=== PATIENT | female | born 1940 | race Caucasian/White ===

== ENCOUNTER 2016-08-26 15:32 | Emergency (ER) | payer MEDICARE, BC ==
[~2016-08-26] VITALS: Ht 152.4 cm; Wt 50.4 kg
[~2016-08-26 15:32] MED LIST: CALC1CAP22 PO; HYDR-4246 PO; MULT-1243 PO; POLY17PO6 PO
[2016-08-26 15:40] VITALS: Ht 152.4 cm; Wt 50.4 kg
--- OUTSIDE RECORDS SUMMARY | 2016-08-26 15:45 | XMS REPORT | Referral Summary ---
Author Author [facility] Organization [facility] Address Unknown Phone Unavailable Care Team Providers Care Pool Technician Name Role Phone Margarita Jaramillo Primary Care Physician [phone] Encounter [facility] Date(s): 08/04/15 - 08/04/15 [facility], [address] [place] [address] Discharge Disposition: 01-Home or Self Care Attending Physician: Gray Jaramillo MD Admitting Physician: Gray Jaramillo MD Vital Signs Most recent to 1 oldest [Reference Range]: Temperature Tympanic 36.6 degC [36.6-38.1 degC] (08/04/15 3:39 PM) Peripheral Pulse 80 bpm Rate [60-100 bpm] (08/04/15 3:39 PM) Blood Pressure 110/62 mmHg [90-140/60-90 mmHg] (08/04/15 3:39 PM) Problem List Condition Effective Dates Status Health Status Informant Abnormal loss of Active weight(Confirmed) Acute Active bronchitis(Confirmed ) Acute Active sinusitis(Confirmed) Acute thoracic back Active pain(Confirmed) Allergy(Confirmed) Active Axillary Active lymphadenopathy(Conf irmed) Axillary Active adenopathy(Confirmed ) Carpal tunnel Active syndrome, right(Confirmed) Carpal tunnel Active syndrome (disorder)(Confirmed ) Cataracts(Confirmed) Resolved Cervical Resolved polyp(Confirmed) Cervical Active radiculopathy(Confir med) CLL (chronic Active lymphocytic leukemia)(Confirmed) CLL(Confirmed) Active Disease/nodule Active maxillary bone(Confirmed) Skin Active disorder(Confirmed) Stress Active incontinence(Confirm ed) Shingles(Confirmed) Active Hyperlipidemia(Confi Active rmed) Urinary Active frequency(Confirmed) Diaphragm Active injury/ruptured/hors e(Confirmed) Knee Active pain/right(Confirmed ) Mass of lower lobe Active of right lung(Confirmed) Lymphadenopathy(Conf Active irmed) Lymphoma(Confirmed) Active Mass of Active leg(Confirmed) [place] Resolved neuroma(Confirmed) Neck pain Active (finding)(Confirmed) Neutropenia(Confirme Active d) Osteoarthritis(Confi Active rmed) Osteopenia(Confirmed Active ) Calf pain(Confirmed) Active Mass of Active pharynx(Confirmed) Post zoster Active neuralgia(Confirmed) Sinus Active infection(Confirmed) Spinal stenosis in Active cervical region (disorder)(Confirmed ) Ecchymoses, Active spontaneous(Confirme d) Popliteal Active cyst(Confirmed) Dry eyes(Confirmed) Active Thrombocytopenia(Con Resolved firmed) Left thyroid Active nodule(Confirmed) Uterine Active prolapse(Confirmed) Chicken Active pox(Confirmed) Varicose veins of Active legs(Confirmed) Allergies, Adverse Reactions, Alerts Substance Reaction Severity Status cortisone swelling Active lidocaine skin burning Active meloxicam abdominal pain Active Medications Calcium 600+D tabs, Oral, BID, 0 Refill(s) Start Date: 11/10/13 Status: Ordered Centrum Silver Daily, 0 Refill(s) Start Date: 11/10/13 Status: Ordered metroNIDAZOLE 500 mg oral tablet 500 mg 1 tabs, Oral, q6hr, 0 Refill(s) Start Date: 08/02/15 Stop Date: 08/09/15 Status: Ordered Union 5 mg-325 mg oral tablet 1-2 tabs, Oral, q6hr, as needed for pain, 0 Refill(s) Start Date: 04/04/15 Status: Ordered Probiotic Formula 1 caps, Oral, Daily, 0 Refill(s) Start Date: 08/04/15 Status: Ordered Results Chemistry Most recent to 1 oldest [Reference Range]: Sodium Lvl [135-144 138 mEq/L mEq/L] (08/04/15 4:08 PM) Potassium Lvl 4.5 mEq/L [3.5-5.2 mEq/L] (08/04/15 4:08 PM) Chloride [99-111 104 mEq/L mEq/L] (08/04/15 4:08 PM) CO2 [22-31 mEq/L] 28 mEq/L (08/04/15 4:08 PM) AGAP [3-20] 6 (08/04/15 4:08 PM) BUN [10-20 mg/dL] 8 mg/dL *LOW* (08/04/15 4:08 PM) Glucose Lvl [70-99 95 mg/dL mg/dL] (08/04/15 4:08 PM) Creatinine Lvl 0.81 mg/dL [0.57-1.11 mg/dL] (08/04/15 4:08 PM) eGFR [>60 mL/min] >60 mL/min 1 (08/04/15 4:08 PM) Calcium Lvl 9.4 mg/dL [8.9-10.5 mg/dL] (08/04/15 4:08 PM) Albumin Lvl [3.4-4.8 3.9 gm/dL gm/dL] (08/04/15 4:08 PM) Total Protein 5.4 gm/dL [6.2-8.1 gm/dL] *LOW* (08/04/15 4:08 PM) Globulin [1.8-4.0 1.5 gm/dL gm/dL] *LOW* (08/04/15 4:08 PM) ALT [0-55 U/L] 18 U/L (08/04/15 4:08 PM) AST [5-34 U/L] 25 U/L (08/04/15 4:08 PM) Alk Phos [40-150 72 U/L U/L] (08/04/15 4:08 PM) Bili Total [0.2-1.2 0.3 mg/dL mg/dL] (08/04/15 4:08 PM) 1Result Comment: Multiply eGFR results by 1.21 for race. Immunizations Vaccine Date Refusal Reason tetanus/diphth/pertuss (Tdap) adult/adol 09/24/13 influenza virus vaccine, inactivated 03/10/15 influenza virus vaccine, inactivated1 02/18/14 influenza virus vaccine, live 02/17/13 influenza virus vaccine, live 03/06/12 pneumococcal 13-valent conjugate vaccine 07/01/14 pneumococcal 23-polyvalent vaccine 02/22/10 pneumococcal 23-polyvalent vaccine 01/25/04 tetanus-diphth toxoids (Td) adult/adol 01/13/04 tetanus-diphth toxoids (Td) adult/adol 10/25/98 1Result Comment: [02/18/2014] See scanned document Procedures Procedure Date Related Diagnosis Body Site Laparotomy1 07/17/15 Right C5-6/C6-7 Transforaminal 09/27/14 Right Carpal Tunnel Injection Under US 04/25/14 Right C5-6/C6-7 Transforaminal 04/07/14 Procedure/Right C5-6/C6-7 Transforaminal 06/03/13 Procedure/Right C5-6/C6-7 Transforaminal 06/11/12 Hospital admission/chemotherapy 2010 Removal/lymph node 2011 Sigmoidoscopy 2008 Arthroscopy of knee/left 2001 Fulton's neuroma/excision x 3 2000 Arthroscopy of knee/left 1997 Appendectomy 1988 Repair/diaphragm 1988 Cataract2 Cervical polypectomy 1with lysis of adhesions 2bilateral IOLs Social History Social History Type Response Smoking Status Never smoker Assessment and Plan Extracted from: Title: Ambulatory Patient Education Author: Gray Jaramillo MD Date: 08/03 Family Medicine Urinary Incontinence Urinary incontinence is the involuntary loss of urine from your bladder. CAUSES There are many causes of urinary incontinence. They include: Medicines. Infections. Prostatic enlargement, leading to overflow of urine from your bladder. Surgery. Neurological diseases. Emotional factors. SIGNS AND SYMPTOMS Urinary Incontinence can be divided into four types: 1.Urge incontinence. Urge incontinence is the involuntary loss of urine before you have the opportunity to go to the bathroom. There is a sudden urge to void but not enough time to reach a bathroom. 2.Stress incontinence. Stress incontinence is the sudden loss of urine with any activity that forces urine to pass. It is commonly caused by anatomical changes to the pelvis and sphincter areas of your body. 3.Overflow incontinence. Overflow incontinence is the loss of urine from an obstructed opening to your bladder. This results in a backup of urine and a resultant buildup of pressure within the bladder. When the pressure within the bladder exceeds the closing pressure of the sphincter, the urine overflows, which causes incontinence, similar to water overflowing a dam. 4.Total incontinence. Total incontinence is the loss of urine as a result of the inability to store urine within your bladder. DIAGNOSIS Evaluating the cause of incontinence may require: A thorough and complete medical and obstetric history. A complete physical exam. Laboratory tests such as a urine culture and sensitivities. When additional tests are indicated, they can include: An ultrasound exam. Kidney and bladder X-rays. Cystoscopy. This is an exam of the bladder using a narrow scope. Urodynamic testing to test the nerve function to the bladder and sphincter areas. TREATMENT Treatment for urinary incontinence depends on the cause: For urge incontinence caused by a bacterial infection, antibiotics will be prescribed. If the urge incontinence is related to medicines you take, your health care provider may have you change the medicine. For stress incontinence, surgery to re-establish anatomical support to the bladder or sphincter, or both, will often correct the condition. For overflow incontinence caused by an enlarged prostate, an operation to open the channel through the enlarged prostate will allow the flow of urine out of the bladder. In women with fibroids, a hysterectomy may be recommended. For total incontinence, surgery on your urinary sphincter may help. An artificial urinary sphincter (an inflatable cuff placed around the urethra) may be required. In women who have developed a hole-like passage between their bladder and vagina (vesicovaginal fistula), surgery to close the fistula often is required. HOME CARE INSTRUCTIONS Normal daily hygiene and the use of pads or adult diapers that are changed regularly will help prevent odors and skin damage. Avoid caffeine. It can overstimulate your bladder. Use the bathroom regularly. Try about every 23 hours to go to the bathroom, even if you do not feel the need to do so. Take time to empty your bladder completely. After urinating, wait a minute. Then try to urinate again. For causes involving nerve dysfunction, keep a log of the medicines you take and a journal of the times you go to the bathroom. SEEK MEDICAL CARE IF: You experience worsening of pain instead of improvement in pain after your procedure. Your incontinence becomes worse instead of better. SEE IMMEDIATE MEDICAL CARE IF: You experience fever or shaking chills. You are unable to pass your urine. You have redness spreading into your groin or down into your thighs. MAKE SURE YOU: (Understand these instructions. Will watch your condition. Will get help right away if you are not doing well or get worse. This information is not intended to replace advice given to you by your health care provider. Make sure you discuss any questions you have with your health care provider. Document Released: 06/12/2005 Document Revised: 02/21/2015 Document Reviewed: [employer] Patient Information 2015 [employer] [facility]. No follow up information was provided. Extracted from: Title: SBO, CLL, hyponatremia Author: Gray Jaramillo MD Date: 08/04/15 Impression and Plan Diagnosis CLL (chronic lymphocytic leukemia) (PEU21-VH C91.10, Working, Medical). Hyponatremia (FFL07-GT E87.1, Working, Medical). Female stress incontinence (RSC40-FZ N39.3, Working, Medical). Osteopenia (PZV65-FZ M85.89, Working, Medical). Hx SBO (DZW45-NH Z87.19, Working, Medical). Plan: 1) Lab today. 2) Continue your current meds. 3) See me in one month and as needed. 4) Drink 2-3 ensure cans daily. 5) Walking exercise is helpful.. Orders Orders (Selected) Outpatient Orders Ordered Trans Care Mgmt 14 Day Disch [id number]: Future (On Hold) CMP: . Dx/Order Association Plan: Diagnosis: CLL (chronic lymphocytic leukemia) Comment: Ordered: Trans Care Mgmt 14 Day Disch [id number]; 08/04/15 15:55:00 CDT , 1, Hx SBO | CLL (chronic lymphocytic leukemia) | Hyponatremia | Osteopenia Diagnosis: Female stress incontinence Comment: Diagnosis: Hx SBO Comment: Ordered: Trans Care Mgmt 14 Day Disch [id number]; 08/04/15 15:55:00 CDT , 1, Hx SBO | CLL (chronic lymphocytic leukemia) | Hyponatremia | Osteopenia Diagnosis: Hyponatremia Comment: Ordered: Trans Care Mgmt 14 Day Disch [id number]; 08/04/15 15:55:00 CDT , 1, Hx SBO | CLL (chronic lymphocytic leukemia) | Hyponatremia | Osteopenia Diagnosis: Osteopenia Comment: Ordered: Trans Care Mgmt 14 Day Disch [id number]; 08/04/15 15:55:00 CDT , 1, Hx SBO | CLL (chronic lymphocytic leukemia) | Hyponatremia | Osteopenia Diagnosis: Hyponatremia Comment: Diagnosis: Hx SBO Comment: Diagnosis: Osteopenia Comment: Diagnosis: CLL (chronic lymphocytic leukemia) Comment: End of Orders ."
--- OUTSIDE RECORDS SUMMARY | 2016-08-26 15:45 | XMS REPORT | Referral Summary ---
Author Author [facility] Organization [facility] Address Unknown Phone Unavailable Care Team Providers Care Immigration Associate Name Role Phone Margarita Jaramillo Primary Care Physician [phone] Encounter [facility] [id number] Date(s): 09/23/14 - 09/23/14 [facility] [address] [place], [place] [address] Discharge Diagnosis: Spinal stenosis in cervical region (disorder) Discharge Diagnosis: Cervical radiculopathy Discharge Diagnosis: Carpal tunnel syndrome (disorder) Discharge Diagnosis: Neck pain (finding) Discharge Disposition: -Home or Self Care Attending Physician: Jhoana Payne APRN Admitting Physician: Jhoana Payne APRN Referring Physician: Gray Jaramillo MD Vital Signs Most recent to 1 oldest [Reference Range]: Temperature Oral 36.4 degC [35.8-37.3 degC] (09/23/14 10:32 AM) Blood Pressure 114/68 mmHg [90-140/60-90 mmHg] (09/23/14 10:32 AM) Problem List Condition Effective Dates Status Health [...] 0 Refill(s) Start Date: 11/10/13 Status: Ordered Serena 5 mg-325 mg oral tablet 1-2 tabs, Oral, q6hr, as needed for pain, 0 Refill(s) Start Date: 04/04/15 Status: Ordered traMADol 50 mg oral tablet 50 mg 1 tabs, Oral, q6hr, Fax: Juliana [place], # 20 tabs, 0 Refill(s) Start Date: 04/04/15 Status: Ordered Results No data available for this section Immunizations Vaccine Date Refusal Reason tetanus/diphth/pertuss (Tdap) [...] Procedures Procedure Date Related Diagnosis Body Site Right C5-6/C6-7 Transforaminal 09/27/14 Right Carpal Tunnel Injection Under US 04/25/14 Right C5-6/C6-7 Transforaminal 04/07/14 Procedure/Right C5-6/C6-7 Transforaminal 06/03/13 Procedure/Right C5-6/C6-7 Transforaminal 06/11/12 Hospital admission/chemotherapy 2010 Removal/lymph node 2011 Sigmoidoscopy 2008 Arthroscopy of knee/left 2001 Fulton's neuroma/excision x 3 2000 Arthroscopy of knee/left 1997 Appendectomy 1988 Repair/diaphragm 1987 Cataract1 Cervical polypectomy 1bilateral IOLs Social History Social History Type Response Smoking Status Never smoker Assessment and Plan Extracted from: Title: Office Visit Note Author: Jhoana Payne [employer] 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 Snider. Her cervical MRI shows multiple levels of disc bulges spondylitic changes and spinal listhesis resulting in central and foraminal stenosis. She returns today with pain in her right arm radiating in a C5 6 distribution she also has carpal tunnel in her right hand with burning numbness and tingling which wakes her up approximately every hour at night. Dr. Snider recommends proceeding with a repeat of a right C5 6 C6 7 transforaminal epidural steroid injection 2 weeks later repeating a right carpal tunnel injection for her symptoms. Discussed with her that after her transforaminal epidural steroid injection if her carpal tunnel symptoms improve she may cancel the carpal tunnel injection Discussed the potential side effects and possible risks from the injection: localized increase in pain, infection, bleeding, allergic reaction, nerve damage involving temporary or permanent pain, numbness , weakness, paralysis or . Patient is in agreement to the above plan of care she will follow-up in our clinic 3 months after the injections or sooner if her symptoms do not improve. Future Scheduled TestsReferral* Return to Clinic 06/07/14 5:31 PM Referrals to Other Providers Referred by: José Almanzar MD
--- OUTSIDE RECORDS SUMMARY | 2016-08-26 15:45 | XMS REPORT | Continuity of Care Document ---
Author Author [facility] Organization [facility] Address Unknown Phone Unavailable Support Name Relationship Address Phone TATE WIGGINS MD Caregiver [address] [place] [address] Unavailable BRINA SCHOFIELD MD Caregiver [address] [place] [id number] Unavailable ZURI BEDOLLA Next Of Kin [place], [place] [id number] Insurance Providers Guarantor Lissy Bedolla Address [address] [address] Email DENIED/NO TO PT PORT Payer Join [employer] Select Plan 65 Policy Number [id number] Subscriber's Name Lissy Bedolla Relationship 18 Self Group Number [id number] Effective Date 09 Payer Medicare Policy Number [id number] Subscriber's Name Lissy Bedolla Relationship 18 Self Effective Date 03 Problems Active Problems Medical Problem Onset Date Status Abdominal pain Unknown Acute Anemia Unknown Chronic CLL (chronic lymphocytic leukemia) Unknown Chronic Cataract Unknown Acute Closed rib fracture Unknown Acute Dyslipidemia Unknown Chronic Enteritis Unknown Acute History of pneumonia Unknown Resolved Hypo-osmolality and hyponatremia Unknown Acute Hypocalcemia Unknown Acute Hyponatremia Unknown Acute Leukocytosis Unknown Chronic Osteoarthritis Unknown Chronic Osteoporosis Unknown Chronic Partial bowel obstruction Unknown Resolved Urge and stress incontinence Unknown Chronic Volvulus of colon Unknown Acute Medications Current Home Medications Medication Dose Units Route Directions Days Qty Instructions Start Date Calcium Carbonate/Vitamin D3 (Calcium 600 + Vit D 400 Softgl) 1 Each Capsule 1 Cap Oral Twice A Day 07/16/15 Hydrocodone/Acetaminophen (Stokes 5-325 Tablet) 1 Each Tablet 1-2 Tab Oral Every 4-6 Hours as needed for Pain 30 Tablet 07/16/15 Hydrocodone/Acetaminophen (Stokes 5-325 Tablet) 1 Each Tablet 1-2 Tab Oral Every 5 Hours as needed for Pain 20 Tablet 07/23/15 Multivits-Min/Fa/Lycopene/Lut (Centrum Silver Tablet) 1 Each Tablet 1 Tab Oral Daily 07/17/15 Polyethylene Glycol 3350 (Miralax) 17 Gm Powd.pack 1 Packet Oral Daily for Constipation 14 Days 07/23/15 Past Home Medications Medication Directions Ordered Status Alendronate Sodium (Fosamax) 70 Mg Tablet, 70 Mg Oral Once A Week 06/18/10 Discontinued Ciprofloxacin Hcl (Cipro) 500 Mg Tablet, 500 Mg Oral Every 12 Hours 07/16/15 Discontinued Metronidazole 500 Mg Tablet, 500 Mg Oral Q6h/0300,0900,1500,2100 07/16/15 Discontinued Rosuvastatin Calcium (Crestor) 5 Mg Tablet, 5 Mg Oral 11/21/10 Discontinued Rosuvastatin Calcium (Crestor) 5 Mg Tablet, 5 Mg Oral Daily 11/21/10 Discontinued Social History Social History Problem Response Recorded Date/Time Onset Date Status Hx Substance Use No 07/17/2015 5:50pm Not Applicable Not Applicable Hx Alcohol Use No 07/18/2015 2:13pm Not Applicable Not Applicable Tobacco Usage none 07/18/2015 9:08am Not Applicable Not Applicable Hospital Discharge Instructions No hospital discharge instructions. Plan of Care Prescriptions See Medication Section Functional Status No functional status results. Allergies, Adverse Reactions, Alerts No known allergies. Immunizations Query Response on File Recorded Date/Time Hx Influenza Vaccination Y fall 201407/17/15 8:24pm Hx Pneumococcal Vaccination 201307/17/15 8:24pm Hx Tetanus, Diptheria, Pertussis Yes 02/25/11 3:05pm Hx Influenza Vaccination Y fall 201407/17/15 8:24pm Hx Tetanus, Diptheria, Pertussis Yes 02/25/11 3:05pm Influenza Vaccine Hx February 2015 07/19/15 10:15am Vital Signs No known vital signs results. Results Laboratory Results Test Name Result Units Flags Reference Collection Date/Time Result Date/ Time Comments Metamyelocytes % 2.0 % H 0-0 01/25/2016 8:35am 01/25/2016 9:20am Metamyelocytes # 1.1 T/MM3 01/25/2016 8:35am 01/25/2016 9:20am Reactive Lymphocytes % 2.0 % H 0-0 03/21/2016 9:10am 03/21/2016 10:13am Reactive Lymphocytes # 0.8 T/MM3 H 0-0 03/21/2016 9:10am 03/21/2016 10: 13am Smudge Cells 2+ 03/21/2016 9:10am 03/21/2016 10:13am White Blood Count 28.1 T/MM3 *H 4.5-11.0 05/16/2016 8:57am 05/16/2016 9: 16am Red Blood Count 4.56 M/MM3 4.00-5.20 05/16/2016 8:57am 05/16/2016 9: 14am Hemoglobin 14.2 GM/DL 12-16 05/16/2016 8:57am 05/16/2016 9:14am Hematocrit 42.9 % 36-46 05/16/2016 8:57am 05/16/2016 9:14am Mean Corpuscular Volume 94.1 UM3 80-100 05/16/2016 8:57am 05/16/2016 9: 14am Mean Corpuscular Hemoglobin 31.1 UUG 26-34 05/16/2016 8:57am 2015 9:14am Mean Corpuscular Hemoglobin Concent 33.1 GM/DL 31-37 05/16/2016 8:57am 05/16/2016 9:14am RDW Standard Deviation 47.5 FL 36.9-50.2 05/16/2016 8:57am 05/16/2016 9 :14am Platelet Count 157 T/MM3 130-400 05/16/2016 8:57am 05/16/2016 9:14am Mean Platelet Volume 11.2 UM3 9.4-12.4 05/16/2016 8:57am 05/16/2016 9: 14am Neutrophils (%) (Auto) 26.8 % L 33-66 04/18/2016 9:34am 04/18/2016 9: 41am Lymphocytes (%) (Auto) 66.4 % H 23-45 04/18/2016 9:34am 04/18/2016 9: 41am Monocytes (%) (Auto) 5.9 % 0-9.0 04/18/2016 9:34am 04/18/2016 9:41am Eosinophils (%) (Auto) 0.5 % 0-4 04/18/2016 9:34am 04/18/2016 9:41am Basophils (%) (Auto) 0.2 % 0-2 04/18/2016 9:34am 04/18/2016 9:41am Immature Granulocyte % (Auto) 0.2 % 0.0-0.5 04/18/2016 9:34am 2015 9:41am Absolute Neutrophils (auto) 2.8 T/MM3 1.8-7.7 04/18/2016 9:34am 2015 9:41am Absolute Lymphocytes (auto) 6.9 T/MM3 H 1-4.8 04/18/2016 9:34am 2015 9:41am Absolute Monocytes (auto) 0.6 T/MM3 0-0.8 04/18/2016 9:34am 04/18/2016 9:41am Absolute Eosinophils (auto) 0.1 T/MM3 0-0.5 04/18/2016 9:34am 2015 9:41am Absolute Basophils (auto) 0.0 T/MM3 0-0.2 04/18/2016 9:34am 04/18/2016 9:41am Absolute Immature Granulocyte (auto 0.02 T/MM3 0.00-0.03 04/18/2016 9: 34am 04/18/2016 9:41am Neutrophils % (Manual) 10.0 % L 33-66 05/16/2016 8:57am 05/16/2016 9: 28am Lymphocytes % (Manual) 86.0 % H 23-45 05/16/2016 8:57am 05/16/2016 9: 28am Monocytes % (Manual) 3.0 % 0-9.0 05/16/2016 8:57am 05/16/2016 9:28am Eosinophils % (Manual) 1.0 % 0-4 05/16/2016 8:57am 05/16/2016 9:28am Absolute Neutrophils (Manual) 2.8 T/MM3 1.8-7.7 05/16/2016 8:57am 05/16 9:28am Lymphocytes # (Manual) 24.2 T/MM3 H 1-4.8 05/16/2016 8:57am 05/16/2016 9 :28am Monocytes # (Manual) 0.8 T/MM3 0-0.8 05/16/2016 8:57am 05/16/2016 9: 28am Eosinophils # (Manual) 0.3 T/MM3 0-0.5 05/16/2016 8:57am 05/16/2016 9: 28am Red Cell Morphology Comment NORMAL 05/16/2016 8:57am 05/16/2016 9: 28am Icterus Index < 2 0-7 05/16/2016 8:57am 05/16/2016 9:12am Chemistry Specimen Hemolysis < 15 0-25 05/16/2016 8:57am 05/16/2016 9 :12am 0-25: Specimen Exhibited No Hemolysis. Turbidity < 20 0-20 05/16/2016 8:57am 05/16/2016 9:12am Sodium Level 136 MEQ/L 134-144 05/16/2016 8:57am 05/16/2016 9:12am Potassium Level 4.5 MEQ/L 3.6-5 05/16/2016 8:57am 05/16/2016 9:12am Chloride Level 99 MEQ/L 98-107 05/16/2016 8:57am 05/16/2016 9:12am Carbon Dioxide Level 30 MEQ/L 22-30 05/16/2016 8:57am 05/16/2016 9: 12am Anion Gap 7 MEQ/L 5-15 05/16/2016 8:57am 05/16/2016 9:12am Blood Urea Nitrogen 11.0 MG/DL 7-17 05/16/2016 8:57am 05/16/2016 9: 12am Creatinine 0.9 MG/DL 0.7-1.2 05/16/2016 8:57am 05/16/2016 9:12am BUN/Creatinine Ratio 12 RATIO 6-26 05/16/2016 8:57am 05/16/2016 9:12am Glomerular Filtration Rate Calc 61 05/16/2016 8:57am 05/16/2016 9: 12am Glucose Level 84 MG/DL 65-110 05/16/2016 8:57am 05/16/2016 9:12am Calculated Osmolality 260 MOSM/KG L 261-280 05/16/2016 8:57am 2015 9:12am Calcium Level 9.4 MG/DL 8.4-10.2 05/16/2016 8:57am 05/16/2016 9:12am Total Bilirubin 0.70 MG/DL 0.20-1.30 05/16/2016 8:57am 05/16/2016 9: 12am Alkaline Phosphatase 60 U/L 38-126 05/16/2016 8:57am 05/16/2016 9:12am Total Protein 6.6 G/DL 6.3-8.2 05/16/2016 8:57am 05/16/2016 9:12am Albumin 4.0 G/DL 3.5-5.0 05/16/2016 8:57am 05/16/2016 9:12am Globulin 2.6 G/DL 2.4-3.6 05/16/2016 8:57am 05/16/2016 9:12am Albumin/Globulin Ratio 1.5 RATIO 1.1-2.2 05/16/2016 8:57am 05/16/2016 9 :12am Aspartate Amino Transf (AST/SGOT) 23 U/L 14-36 05/16/2016 8:57am 2015 9:12am Alanine Aminotransferase (ALT/SGPT) 24 U/L 9-52 05/16/2016 8:57am 05/16 9:12am Procedures Procedure Status Date Provider(s) ROUTINE VENIPUNCTURE Completed 11/30/15 COMPREHEN METABOLIC PANEL Completed 11/30/15 BL SMEAR W/DIFF WBC COUNT Completed 11/30/15 COMPLETE CBC AUTOMATED Completed 11/30/15 ROUTINE VENIPUNCTURE Completed 11/30/15 COMPREHEN METABOLIC PANEL Completed 11/30/15 BL SMEAR W/DIFF WBC COUNT Completed 11/30/15 COMPLETE CBC AUTOMATED Completed 11/30/15 ROUTINE VENIPUNCTURE Completed 11/30/15 COMPREHEN METABOLIC PANEL Completed 11/30/15 BL SMEAR W/DIFF WBC COUNT Completed 11/30/15 COMPLETE CBC AUTOMATED Completed 11/30/15 COMPREHEN METABOLIC PANEL Completed 11/30/15 COMPLETE CBC W/AUTO DIFF WBC Completed 11/30/15 COMP SCREEN MAMMOGRAM ADD-ON Completed 03/21/16 BREAST TOMOSYNTHESIS BI Completed 03/21/16 [id number]"SCREENING MAMMOGRAPHY, PRODUCING DIRECT DIGITAL IMAGE Completed Encounters Encounter Location Arrival/Admit Date Discharge/Depart Date Attending Provider Discharged Recurring [facility] 05/16/16 8:52am 05/18/16 11:54pm TATE WIGGINS MD Discharged Recurring [facility] 04/18/16 8:56am 05/18/16 11:12pm TATE WIGGINS MD Registered Clinic [facility] 03/21/16 2:47pm LINH MAYBERRY Discharged Recurring [facility] 11/30/15 7:55am 04/07/16 11:59pm TATE WIGGINS MD
--- OUTSIDE RECORDS SUMMARY | 2016-08-26 15:46 | XMS REPORT | Referral Summary ---
Author Organization Unknown Address Unknown Phone Unavailable Care Team Providers Care Watch Engineer Name Role Phone Margartia Jaramillo Primary Care Physician [phone] Encounter VC Date(s): 06/07/14 - 06/07/14 [facility], Laith Rowell [address] [place], [place] [address] Discharge Diagnosis: Weight loss Discharge Diagnosis: Lung mass Discharge Diagnosis: Chronic lymphocytic leukemia Discharge Diagnosis: Lymphoma Discharge Disposition: Home or Self Care Attending Physician: José Almanzar MD Admitting Physician: José Almanzar MD Referring Physician: Gray Jaramillo MD Vital Signs Most recent to 1 oldest [Reference Range]: Peripheral Pulse 68 bpm Rate [60-100 bpm] (06/07/14 1:51 PM) Respiratory Rate 14 br/min [14-20 br/min] (06/07/14 1:51 PM) Blood Pressure 136/70 mmHg [90-140/60-90 mmHg] (06/07/14 1:51 PM) Most recent to 1 oldest [Reference Range]: SpO2 96 % (06/07/14 1:51 PM) Problem List Condition Effective Dates Status Health Status Informant Abnormal loss of Active weight(Confirmed) Acute thoracic back Active pain(Confirmed) Allergy(Confirmed) Active Axillary Active lymphadenopathy(Conf irmed) Axillary Active adenopathy(Confirmed ) Carpal tunnel Active syndrome, right(Confirmed) Carpal tunnel Active syndrome (disorder)(Confirmed ) Cataracts(Confirmed) Resolved Cervical Resolved polyp(Confirmed) Cervical Active radiculopathy(Confir med) CLL (chronic Active lymphocytic leukemia)(Confirmed) CLL(Confirmed) Resolved Disease/nodule Active maxillary bone(Confirmed) Skin Active disorder(Confirmed) Dry eyes(Confirmed) Active Stress Active incontinence(Confirm ed) Shingles(Confirmed) Active Hyperlipidemia(Confi [...] Ecchymoses, Active spontaneous(Confirme d) Popliteal Active cyst(Confirmed) Thrombocytopenia(Con Resolved firmed) Left thyroid Active nodule(Confirmed) Uterine Active prolapse(Confirmed) Chicken Active pox(Confirmed) Varicose veins of Active legs(Confirmed) Allergies, Adverse Reactions, Alerts Substance Reaction Severity Status cortisone swelling Active lidocaine skin burning Active meloxicam abdominal pain Active Medications Calcium 600+D tabs, Oral, BID, 0 Refill(s) Start Date: 11/10/13 Status: Ordered Centrum Silver Daily, 0 Refill(s) Start Date: 11/10/13 Status: Ordered Results No data available for this section Immunizations Vaccine Date Refusal Reason tetanus/diphth/pertuss (Tdap) adult/adol 09/24/13 influenza virus vaccine, inactivated1 02/18/14 influenza virus vaccine, live 02/17/13 influenza virus vaccine, live 03/06/12 pneumococcal 23-polyvalent vaccine 02/22/10 pneumococcal 23-polyvalent vaccine 01/25/04 tetanus-diphth toxoids (Td) adult/adol 01/13/04 tetanus-diphth toxoids (Td) adult/adol 10/25/98 1Result Comment: [02/18/2014] See scanned document Procedures Procedure Date Related Diagnosis Body Site Right Carpal Tunnel Injection Under US 04/25/14 Right C5-6/C6-7 Transforaminal 04/07/14 Procedure/Right C5-6/C6-7 Transforaminal 06/03/13 Procedure/Right C5-6/C6-7 Transforaminal 06/11/12 Hospital admission/chemotherapy 2010 Removal/lymph node 2011 Sigmoidoscopy 2008 Arthroscopy of knee/left 2001 Fulton's neuroma/excision x 3 2000 Arthroscopy of knee/left 1997 Appendectomy 1988 Repair/diaphragm 1987 Cataract Cervical polypectomy Social History Social History Type Response Smoking Status Never smoker Assessment and Plan Future Scheduled TestsReferral* Return to Clinic 06/07/14 5:31 PM Referrals to Other Providers Referred by: José Almanzar MD
--- OUTSIDE RECORDS SUMMARY | 2016-08-26 15:46 | XMS REPORT | Referral Summary ---
Author Organization Unknown Address Unknown Phone Unavailable Care Team Providers Care Eastern Philosophy Professor Name Role Phone Margarita Jaramillo Primary Care Physician [phone] Encounter VC Date(s): 06/01/14 - 06/01/14 [facility], [place] [place] [id number] Discharge Diagnosis: Left thyroid nodule Discharge Diagnosis: Post zoster neuralgia Discharge Diagnosis: Lung mass Discharge Diagnosis: Abnormal loss of weight Discharge Diagnosis: CLL (chronic lymphocytic leukemia) Discharge Disposition: Home or Self Care Attending Physician: Gray Jaramillo MD Admitting Physician: Gray Jaramillo MD Vital Signs Most recent to 1 oldest [Reference Range]: Temperature Tympanic 36.5 degC [36.6-38.1 degC] *LOW* (06/01/14 11:06 AM) Peripheral Pulse 72 bpm Rate [60-100 bpm] (06/01/14 11:06 AM) Blood Pressure 126/72 mmHg [90-140/60-90 mmHg] (06/01/14 11:06 AM) Problem List Condition Effective Dates Status [...] Patient Education Author: Gray Jaramillo MD Date: 06/01 Family Medicine Postherpetic Neuralgia Shingles is a painful disease. It is caused by the herpes zoster virus. This is the same virus which also causes chickenpox. It can affect the torso, limbs, or the face. For most people, shingles is a condition of rather sudden onset. Pain usually lasts about 1 month. In older patients, or patients with poor immune systems, a painful, long- standing (chronic ) condition called postherpetic neuralgia can develop. This condition rarely happens before age 50. But at least 50% of people over 50 become affected following an attack of shingles. There is a natural tendency for this condition to improve over time with no treatment. Less than 5% of patients have pain that lasts for more than 1 year. DIAGNOSIS Herpes is usually easily diagnosed on physical exam. Pain sometimes follows when the skin sores (lesions ) have disappeared. It is called postherpetic neuralgia. That name simply means the pain that follows herpes. TREATMENT Treating this condition may be difficult. Usually one of the tricyclic antidepressants, often amitriptyline, is the first line of treatment. There is evidence that the sooner these medications are given, the more likely they are to reduce pain. Conventional analgesics, regional nerve blocks, and anticonvulsants have little benefit in most cases when used alone. Other tricyclic anti-depressants are used as a second option if the first antidepressant is unsuccessful. Anticonvulsants, including carbamazepine, have been found to provide some added benefit when used with a tricyclic anti-depressant. This is especially for the stabbing type of pain similar to that of trigeminal neuralgia. Chronic opioid therapy. This is a strong narcotic pain medication. It is used to treat pain that is resistant to other measures. The issues of dependency and tolerance can be reduced with closely managed care. Some cream treatments are applied locally to the affected area. They can help when used with other treatments. Their use may be difficult in the case of postherpetic trigeminal neuralgia. This is involved with the face. So the substances can irritate the eye and the skin around the eye. Examples of creams used include Capsaicin and lidocaine creams. For shingles, antiviral therapies along with analgesics are recommended. Studies of the effect of anti-viral agents such as acyclovir on shingles have been done. They show improved rates of healing and decreased severity of sudden (acute ) pain. Some observations suggest that nerve blocks during shingles infection will: Reduce pain. Shorten the acute episode. Prevent the emergence of postherpetic neuralgia. Viral medications used include Acyclovir (Zovirax), Valacyclovir, Famciclovir and a lysine diet. Document Released: 07/26/2003 Document Revised: 07/27/2012 Document Reviewed: ExitCare Patient Information 2014 [employer] [facility]. No follow up information was provided. 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 Lung mass (ICD9 786.6, Discharge, Medical). Left thyroid nodule (ICD9 241.0, Discharge, Medical). CLL (chronic lymphocytic leukemia) (ICD9 204.11, Discharge, Medical). Abnormal loss of weight (ICD9 783.21, Discharge, Medical). Plan: I recommend that you get the Prevnar-13 vaccine at [facility] or here. Continue your current meds. Drink Ensure at least twice a day to prevent weight loss. See the lung Dr. as scheduled. See me in 3 months and as needed.. Orders Orders (Selected) Outpatient Orders Ordered Office Visit Level 4 Est 42964: . Dx/Order Association Plan: Diagnosis: Abnormal loss of weight Comment: Ordered: Office Visit Level 4 Est [id number]; 06/01/14 11:29:[address] SUPERVISOR, Abnormal loss of weight | CLL (chronic lymphocytic leukemia) | Lung mass | Post zoster neuralgia | Left thyroid nodule Diagnosis: CLL (chronic lymphocytic leukemia) Comment: Ordered: Office Visit Level 4 Est [id number]; 06/01/14 11:29:[address] SUPERVISOR, Abnormal loss of weight | CLL (chronic lymphocytic leukemia) | Lung mass | Post zoster neuralgia | Left thyroid nodule Diagnosis: Left thyroid nodule Comment: Ordered: Office Visit Level 4 Est [id number]; 06/01/14 11:29:[address] SUPERVISOR, Abnormal loss of weight | CLL (chronic lymphocytic leukemia) | Lung mass | Post zoster neuralgia | Left thyroid nodule Diagnosis: Lung mass Comment: Ordered: Office Visit Level 4 Est [id number]; 06/01/14 11:29:[address] SUPERVISOR, Abnormal loss of weight | CLL (chronic lymphocytic leukemia) | Lung mass | Post zoster neuralgia | Left thyroid nodule Diagnosis: Post zoster neuralgia Comment: Ordered: Office Visit Level 4 Est [id number]; 06/01/14 11:29:[address] SUPERVISOR, Abnormal loss of weight | CLL (chronic lymphocytic leukemia) | Lung mass | Post zoster neuralgia | Left thyroid nodule End of Orders ."
--- OUTSIDE RECORDS SUMMARY | 2016-08-26 15:46 | XMS REPORT | Referral Summary ---
Author Author [facility] Organization [facility] Address Unknown Phone Unavailable Care Team Providers Care Vascular Surgeon Name Role Phone Margarita Jaramillo Primary Care Physician [phone] Encounter VC Date(s): 03/10/15 - 03/10/15 [facility] [address] [place] [address]- Discharge Disposition: 01-Home or Self Care Attending Physician: Gray Jaramillo MD Admitting Physician: Gray Jaramillo MD Vital Signs No data available for this section Problem List Condition Effective Dates Status Health [...] of knee/left 1997 Appendectomy 1988 Repair/diaphragm 1988 Cataract Cervical polypectomy Social History Social History Type Response Smoking Status Never smoker Assessment and Plan Future Scheduled TestsReferral* Return to Clinic 06/07/14 5:31 PM Referrals to Other Providers Referred by: José Almanzar MD
--- OUTSIDE RECORDS SUMMARY | 2016-08-26 15:46 | XMS REPORT | Referral Summary ---
Author Organization Unknown Address Unknown Phone Unavailable Care Team Providers Care Copra Processor Name Role Phone Margarita Jaramillo Primary Care Physician [phone] Encounter VC Date(s): 07/26/14 - 07/26/14 [facility], Daphne Ho, [facility] [address] [place], [place] [address] Discharge Diagnosis: Cervical radiculopathy Discharge Diagnosis: Neck pain (finding) Discharge Diagnosis: Spinal stenosis in cervical region (disorder) Discharge Diagnosis: Carpal tunnel syndrome Discharge Disposition: Home or Self Care Attending Physician: Leroy Zeng Admitting Physician: Leroy Zeng Referring Physician: Gray Jaramillo MD Vital Signs Most recent to 1 oldest [Reference Range]: Temperature Oral 36.8 degC [35.8-37.3 degC] (07/26/14 9:54 AM) Blood Pressure 122/74 mmHg [90-140/60-90 mmHg] (07/26/14 9:54 AM) Problem List Condition Effective Dates Status [...] Hospital admission/chemotherapy 2010 Removal/lymph node 2011 Sigmoidoscopy 2009 Arthroscopy of knee/left 2002 Fulton's neuroma/excision x 3 2000 Arthroscopy of knee/left 1997 Appendectomy 1988 Repair/diaphragm 1987 Cataract Cervical polypectomy Social History Social History Type Response Smoking Status Never smoker Assessment and Plan Extracted from: Title: Office Visit Note Author: Leroy Zeng Date: 07/26/14 Assessment/Plan Carpal tunnel syndrome Cervical radiculopathy Neck pain (finding) Spinal stenosis in cervical region (disorder) I discussed this patient's care with Dr. Snider. I did review with the patient her cervical MRI shows multiple levels of disc bulges spondylitic changes spondylolisthesis all resulting in central and foraminal stenosis. She is not interested in any spinal surgery and has no myelopathic signs. She also has some carpal tunnel syndrome but again seems to be doing well at this time. I did warn her if she experienced a major weakness true loss of bowel or bladder control altered gait she should seek urgent medical attention. She would otherwise follow-up here on an as-needed basis if her symptoms worsen. She voiced understanding and agrees to the above plans. The above was in discussion with Dr. Snider. Future Scheduled TestsReferral* Return to Clinic 06/07/14 5:31 PM Referrals to Other Providers Referred by: Joés Almanzar MD
--- OUTSIDE RECORDS SUMMARY | 2016-08-26 15:46 | XMS REPORT | Continuity of Care Document ---
Author Author Tylor ANTONIO, [facility] Ambulatory Address [address] [place] [address] Phone Care Team Providers Care Digital Forensic Analyst Name Role Phone Gray Jaramillo PP Unavailable Gray Jaramillo RP Unavailable Payers Payer name Insurance type Covered democrat ID Authorization(s) Unknown Problems Condition Effective Dates (start - stop) Clinical Status Carpal Tunnel Syndrome - *Symptomatic Brachial neuritis or radiculitis nos - *Chronic Cervicalgia - *Chronic Brachial neuritis or radiculitis nos - *Chronic Spinal stenosis in cervical region - *Chronic 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 Spinal stenosis in cervical region - Chronic Lump on face - *Chronic CLL (chronic lymphocytic leukemia) - *Chronic Lymphadenopathy, axillary - *Acute Paresthesia of arm - *Acute Maxillary sinus mass - *Chronic CLL (chronic lymphocytic leukemia) - *Chronic Third degree uterine prolaps - *Chronic Urge incontinence - *Chronic Osteopenia - *Chronic Osteoarthritis of both feet - *Chronic Osteoarthritis of neck - *Chronic Right cervical radiculopathy - *Worse CLL (chronic lymphocytic leukemia) - *Chronic CTS (carpal tunnel syndrome) - *Chronic Spinal stenosis in cervical region - *Chronic Spinal stenosis in cervical region - *Symptomatic Brachial neuritis or radiculitis nos - *Chronic Brachial neuritis or radiculitis nos - *Symptomatic Carpal tunnel syndrome - *Chronic Cervicalgia - *Symptomatic Cervicalgia - *Symptomatic Carpal Tunnel Syndrome - *Symptomatic Spinal stenosis in cervical region - *Symptomatic Brachial neuritis or radiculitis nos - *Symptomatic Osteopenia - *Chronic Cervical spinal stenosis - *Chronic Cervical radiculopathy - *Acute CLL (chronic lymphocytic leukemia) - *Chronic Spinal stenosis in cervical region - *Chronic Brachial neuritis or radiculitis nos - *Chronic Spinal stenosis in cervical region - Chronic 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 Carpal Tunnel Syndrome - *Chronic Carpal Tunnel Syndrome - Chronic Influenza Vaccine - Sinusitis, frontal, acute - *Acute Neuropathic pain of upper extremity - *Symptomatic Spinal stenosis in cervical region - *Symptomatic Brachial neuritis or radiculitis nos - *Symptomatic VARICELLA UNCOMPLICATED - OTH LYMP UNSP XTRNDL ORG - CH LYM LEUK WO ACHV RMSN - BONE/SKIN NEOPLASM NOS - PURE HYPERCHOLESTEROLEM - THROMBOCYTOPENIA NOS - NEUTROPENIA NOS - UTERINE PROLAPSE - FEM STRESS INCONTINENCE - OSTEOARTHROS NOS-L/LEG - JOINT PAIN-L/LEG - BONE & CARTILAGE DIS NOS - URINARY FREQUENCY - Spinal stenosis in cervical region - *Chronic Brachial neuritis or radiculitis nos - *Chronic Spinal stenosis in cervical region - Chronic 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 CLL (chronic lymphocytic leukemia) - *Chronic Osteopenia - *Chronic Urge incontinence - *Chronic Maxillary sinus mass - *Chronic Cervical radiculopathy - Intermittent Cervical spinal stenosis - *Chronic Brachial neuritis or radiculitis nos - *Chronic 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 Carpal Tunnel Syndrome - Moderate Family History Family Member Diagnosis Age At Onset Status Maternal grandfather (Unknown) Diabetes Yes Father (Unknown) CAD Yes Father (Unknown) Cancer - leukemia Yes Mother (Unknown) macular degeneration Yes Maternal grandfather (Unknown) CAD Yes Father (Unknown) Emphysema, and CHF Yes Mother (Unknown) Alive and well (Unknown) Social History Social History Element Description Quantity Unknown Allergies, Adverse Reactions, Alerts Substance Reaction Severity Status CORTISONE swelling Unknown RALOXIFENE HCL hot flashes Unknown MELOXICAM abdominal pain Unknown LIDOCAINE skin burning Unknown Medications Medication Instructions Dosage Effective Dates (start - stop) Status Centrum Silver Ultra Women's tablet take 1 by Oral route every day 0 - Active Calcium 600 + Minerals 600 mg calcium-400 unit tablet take 1 by Oral route twice a day - Active Trevett 7.5 mg-325 mg tablet take 1 tablet by oral route every 4 hours as needed for pain - Active Immunizations Vaccine Date Status Comments Flu (split) (3 yrs or older) completed Flu (split) (3 yrs or older) completed Td (adult) completed - Completed reason: source unspecified Td (adult) completed - Completed reason: source unspecified pneumo (2 yrs or older) (PPV23) completed - Completed reason: source unspecified pneumo (2 yrs or older) (PPV23) completed - Completed reason: source unspecified Results Test Name Date and Time Measure Units Reference Range Abnormal Flag Comments Unknown Vital Signs Date / Time: Height Weight Pulse Rate Blood Pressure Temperature /15:39:00 60.00 in 120.00 lbs 122/74 mm[Hg] 97.3 F Procedures Procedure Date Unknown Encounters Encounter Location Date Patient Visit [facility] FC Pain Patient Visit [facility] New FM Patient Visit [facility] New FM Patient Visit [facility] New FM Patient Visit [facility] Pain Patient Visit [facility] Pain Patient Visit [facility] New FM Patient Visit [facility] Pain Patient Visit [facility] Pain Patient Visit [facility] New FM Patient Visit [facility] New FM Patient Visit [facility] Pain Patient Visit [facility] Patient Visit [facility] FC Pain Patient Visit [facility] FM Patient Visit [facility] Patient Visit [facility] FM Patient Visit [facility] FM Advance Directives Directive Effective Date Unknown
--- OUTSIDE RECORDS SUMMARY | 2016-08-26 15:46 | XMS REPORT | Referral Summary ---
Author Organization Unknown Address Unknown Phone Unavailable Care Team Providers Care Siding Applicator Name Role Phone Margarita Jaramillo Primary Care Physician [phone] Encounter VC Date(s): 09/01/14 - 09/01/14 [address] [place], [address] [place] [id number] Discharge Diagnosis: CLL Discharge Diagnosis: Pulmonary nodule Discharge Diagnosis: Hyperlipidemia Discharge Diagnosis: Spinal stenosis in cervical region (disorder) Discharge Diagnosis: Axillary adenopathy Discharge Disposition: Home or Self Care Attending Physician: Gray Jaramillo MD Admitting Physician: Gray Jaramillo MD Vital Signs Most recent to 1 oldest [Reference Range]: Temperature Tympanic 36.4 degC [36.6-38.1 degC] *LOW* (09/01/14 9:55 AM) Peripheral Pulse 72 bpm Rate [60-100 bpm] (09/01/14 9:55 AM) Blood Pressure 116/62 mmHg [90-140/60-90 mmHg] (09/01/14 9:55 AM) Problem List Condition Effective Dates Status [...] Patient Education Author: Gray Jaramillo MD Date: 09/01 Family Medicine Chronic Lymphocytic Leukemia Chronic lymphocytic leukemia (CLL) is a type of cancer of the bone marrow and blood cells. Bone marrow is the soft, spongy tissue inside your bone. In CLL, the bone marrow makes too many white blood cells that usually fight infection in the body (lymphocytes ). CLL usually gets worse slowly and is the most common type of adult leukemia. RISK FACTORS No one knows the exact cause of CLL. There is a higher risk of CLL in people who : Are older than 50 years. Are white. Are male. Have a family history of CLL or other cancers of the lymph system. Are of Thai Islam or Eastern Islam descent. Have been exposed to certain chemicals, such as Agent [place] (used in the [place] War) or other herbicides or insecticides. SYMPTOMS At first, there may be no symptoms of chronic lymphocytic leukemia. After a while, some symptoms may occur, such as: Feeling more tired than usual, even after rest. Unplanned weight loss. Heavy sweating at night. Fevers. Shortness of breath. Decreased energy. Paleness. Painless, swollen lymph nodes. A feeling of fullness in the upper left part of the abdomen. Easy bruising or bleeding. More frequent infections. DIAGNOSIS Your health care provider may perform the following exams and tests to diagnose CLL: Physical exam to check for an enlarged spleen, liver, or lymph nodes. Blood and bone marrow tests to identify the presence of cancer cells. These may include tests such as complete blood count, flow cytometry, immunophenotyping, and fluorescence in situ hybridization (FISH). CT scan to look for swelling or abnormalities in your spleen, liver, and lymph nodes. TREATMENT Treatment options for CLL depend on the stage and the presence of symptoms. There are a number of types of treatment used for this condition, including: Observation. Targeted drugs. These are drugs that interfere with chemicals that leukemia cells need in order to grow and multiply. They identify and attack specific cancer cells without harming normal cells. Chemotherapy drugs. These medicines kill cells that are multiplying quickly , such as leukemia cells. Radiation. Surgery to remove the spleen. Biological therapy. This treatment boosts the ability of your own immune system to fight the leukemia cells. Bone marrow or peripheral blood stem cell transplant. This treatment allows the patient to receive very high doses of chemotherapy and/or radiation. These high doses kill the cancer cells but also destroy the bone marrow. After treatment is complete, you are given donor bone marrow or stem cells, which will replace the bone marrow. HOME CARE INSTRUCTIONS Because you have an increased risk of infection, practice good hand washing and avoid being around people who are ill or being in crowded places. Because you have an increased risk of bleeding and bruising, avoid contact sports or other rough activities. Only take [id number] or prescription medicines for pain, discomfort, or fever as directed by your health care provider. Although some of your treatments might affect your appetite, try to eat regular, healthy meals. If you develop any side effects, such as nausea, diarrhea, rash, white patches in your mouth, a sore throat, difficulty swallowing, or severe fatigue, tell your health care provider. He or she may have recommendations of things you can do to improve symptoms. Consider learning some ways to cope with the stress of having a chronic illness, such as yoga, meditation, or participating in a support group. SEEK MEDICAL CARE IF: You develop chest pains. You notice pain, swelling or redness anywhere in your legs. You have pain in your belly (abdomen ). You develop new bruises that are getting bigger. You have painful or more swollen lymph nodes. You develop bleeding from your gums, nose, or in your urine or stools. You are unable to stop throwing up (vomiting ). You cannot keep liquids down. You feel lightheaded. You have a fever or persistent symptoms for more than 23 days. You develop a severe stiff neck or headache. SEEK IMMEDIATE MEDICAL CARE IF: You have trouble breathing or feel short of breath. You faint. Document Released: 09/21/2009 Document Revised: 01/05/2014 Document Reviewed: [facility] Patient Information 2014 [employer]. No follow up information was provided. Extracted from: Title: CLL, pulmonary nodule Author: Gray Jaramillo MD Date: 09/01/14 Impression and Plan Diagnosis Axillary adenopathy (ICD9 785.6, Discharge, Medical). CLL (ICD9 204.10, Discharge, Medical). Hyperlipidemia (ICD9 272.4, Discharge, Medical). Pulmonary nodule (ICD9 793.11, Discharge, Medical). Spinal stenosis in cervical region (disorder) (ICD9 723.0, Discharge, Medical). Plan: Continue your current meds and treatments. , Continue to followup with Dr. Santos every 3 months. See me in 4 months and as needed.. Orders Orders (Selected) Outpatient Orders Ordered Office Visit Level 4 Est 11178: . Dx/Order Association Plan: Diagnosis: Axillary adenopathy Comment: Ordered: Office Visit Level 4 Est [id number]; 09/01/14 10:17:00 CDT, CLL | Spinal stenosis in cervical region (disorder) | Pulmonary nodule | Axillary adenopathy | Hyperlipidemia Diagnosis: CLL Comment: Ordered: Office Visit Level 4 Est [id number]; 09/01/14 10:17:00 CDT, CLL | Spinal stenosis in cervical region (disorder) | Pulmonary nodule | Axillary adenopathy | Hyperlipidemia Diagnosis: Hyperlipidemia Comment: Ordered: Office Visit Level 4 Est [id number]; 09/01/14 10:17:00 CDT, CLL | Spinal stenosis in cervical region (disorder) | Pulmonary nodule | Axillary adenopathy | Hyperlipidemia Diagnosis: Pulmonary nodule Comment: Ordered: Office Visit Level 4 Est [id number]; 09/01/14 10:17:00 CDT, CLL | Spinal stenosis in cervical region (disorder) | Pulmonary nodule | Axillary adenopathy | Hyperlipidemia Diagnosis: Spinal stenosis in cervical region (disorder) Comment: Ordered: Office Visit Level 4 Est [id number]; 09/01/14 10:17:00 CDT, CLL | Spinal stenosis in cervical region (disorder) | Pulmonary nodule | Axillary adenopathy | Hyperlipidemia End of Orders . Future Scheduled TestsReferral* Return to Clinic 06/07/14 5:31 PM Referrals to Other Providers Referred by: José Almanzar MD"
--- OUTSIDE RECORDS SUMMARY | 2016-08-26 15:46 | XMS REPORT | Referral Summary ---
Author Author [facility], [facility] Organization [facility] Address Unknown Phone Unavailable Care Team Providers Care Single End Sewer Name Role Phone Margarita Jaramillo Primary Care Physician [phone] Encounter VC Date(s): 03/15/15 - 03/15/15 [facility] [address] [place] [id number]- Discharge Disposition: 01-Home or Self Care Attending Physician: Gray Jaramillo MD Admitting Physician: Gray Jaramillo MD Vital Signs Most recent to 1 oldest [Reference Range]: Temperature Tympanic 36.3 degC [36.6-38.1 degC] *LOW* (03/15/15 8:59 AM) Peripheral Pulse 72 bpm Rate [60-100 bpm] (03/15/15 8:59 AM) Blood Pressure 102/52 mmHg [90-140/60-90 mmHg] (03/15/15 8:59 AM) Problem List Condition Effective Dates Status [...] Refill(s) Start Date: 11/10/13 Status: Ordered Results Chemistry Most recent to 1 oldest [Reference Range]: Sodium Lvl [135-144 140 mEq/L mEq/L] (03/15/15 9:55 AM) Potassium Lvl 4.6 mEq/L [3.5-5.2 mEq/L] (03/15/15 9:55 AM) Chloride [99-111 106 mEq/L mEq/L] (03/15/15 9:55 AM) CO2 [22-31 mEq/L] 27 mEq/L (03/15/15 9:55 AM) AGAP [3-20] 7 (03/15/15 9:55 AM) BUN [10-20 mg/dL] 14 mg/dL (03/15/15 9:55 AM) Glucose Lvl [70-99 92 mg/dL mg/dL] (03/15/15 9:55 AM) Creatinine Lvl 1.01 mg/dL [0.57-1.11 mg/dL] (03/15/15 9:55 AM) eGFR [>60 mL/min] 53 mL/min 1 *ABN* (03/15/15 9:55 AM) Calcium Lvl 9.4 mg/dL [8.9-10.5 mg/dL] (03/15/15 9:55 AM) Albumin Lvl [3.4-4.8 4.2 gm/dL gm/dL] (03/15/15 9:55 AM) Total Protein 6.1 gm/dL [6.2-8.1 gm/dL] *LOW* (03/15/15 9:55 AM) Globulin [1.8-4.0 1.9 gm/dL gm/dL] (03/15/15 9:55 AM) ALT [0-55 U/L] 24 U/L (03/15/15 9:55 AM) AST [5-34 U/L] 30 U/L (03/15/15 9:55 AM) Alk Phos [40-150 103 U/L U/L] (03/15/15 9:55 AM) Bili Total [0.2-1.2 0.6 mg/dL mg/dL] (03/15/15 9:55 AM) TSH [0.35-4.94] 1.21 (03/15/15 9:55 AM) 1Result Comment: Multiply eGFR results by 1.21 for race. Urinalysis Most recent to 1 oldest [Reference Range]: UA Color Yellow (03/15/15 1:40 PM) UA Appear Clear (03/15/15 1:40 PM) UA pH [5.0-8.0] 6.0 (03/15/15 1:40 PM) UA Leuk Est Pos 1+ [Negative] *ABN* (03/15/15 1:40 PM) UA Nitrite Negative [Negative] (03/15/15 1:40 PM) UA Protein Negative [Negative] (03/15/15 1:40 PM) UA Glucose Negative [Negative] (03/15/15 1:40 PM) UA Ketones Negative [Negative] (03/15/15 1:40 PM) UA Urobilinogen 0.2 mg/dL [<1.0 mg/dL] (03/15/15 1:40 PM) UA Bili [Negative] Negative (03/15/15 1:40 PM) UA Blood [Negative] Negative (03/15/15 1:40 PM) UA Spec Grav 1.010 [1.003-1.030] (03/15/15 1:40 PM) Type Nath (03/15/15 1:40 PM) UA WBC [0-4] 5-10 *ABN* (03/15/15 1:40 PM) UA RBC [0-4] 0-4 (03/15/15 1:40 PM) Epithelial Cells 5-10 (03/15/15 1:40 PM) UA Bacteria Occasional *ABN* (03/15/15 1:40 PM) UA Hyal Cast [0-3] 1-3 (03/15/15 1:40 PM) Immunizations Vaccine Date Refusal Reason tetanus/diphth/pertuss (Tdap) [...] neuroma/excision x 3 2000 Arthroscopy of knee/left 1998 Appendectomy 1988 Repair/diaphragm 1988 Cataract1 Cervical polypectomy 1bilateral IOLs Social History Social History Type Response Smoking Status Never smoker Assessment and Plan Extracted from: Title: Ambulatory Patient Education Author: Gray Jaramillo MD Date: Family Medicine Lymphadenopathy Lymphadenopathy means "disease of the lymph glands." But the term is usually used to describe swollen or enlarged lymph glands, also called lymph nodes. These are the rossi-shaped organs found in many locations including the neck, underarm, and groin. Lymph glands are part of the immune system, which fights infections in your body. Lymphadenopathy can occur in just one area of the body , such as the neck, or it can be generalized, with lymph node enlargement in several areas. The nodes found in the neck are the most common sites of lymphadenopathy. CAUSES When your immune system responds to germs (such as viruses or bacteria ), infection-fighting cells and fluid build up. This causes the glands to grow in size. Usually, this is not something to worry about. Sometimes, the glands themselves can become infected and inflamed. This is called lymphadenitis. Enlarged lymph nodes can be caused by many diseases: Bacterial disease, such as strep throat or a skin infection. Viral disease, such as a common cold. Other germs, such as Lyme disease, tuberculosis, or sexually transmitted diseases. Cancers, such as lymphoma (cancer of the lymphatic system) or leukemia ( cancer of the white blood cells). Inflammatory diseases such as lupus or rheumatoid arthritis. Reactions to medications. Many of the diseases above are rare, but important. This is why you should see your caregiver if you have lymphadenopathy. SYMPTOMS Swollen, enlarged lumps in the neck, back of the head, or other locations. Tenderness. Warmth or redness of the skin over the lymph nodes. Fever. DIAGNOSIS Enlarged lymph nodes are often near the source of infection. They can help health care providers diagnose your illness. For instance: Swollen lymph nodes around the jaw might be caused by an infection in the mouth. Enlarged glands in the neck often signal a throat infection. Lymph nodes that are swollen in more than one area often indicate an illness caused by a virus. Your caregiver will likely know what is causing your lymphadenopathy after listening to your history and examining you. Blood tests, x-rays, or other tests may be needed. If the cause of the enlarged lymph node cannot be found, and it does not go away by itself, then a biopsy may be needed. Your caregiver will discuss this with you. TREATMENT Treatment for your enlarged lymph nodes will depend on the cause. Many times the nodes will shrink to normal size by themselves, with no treatment. Antibiotics or other medicines may be needed for infection. Only take over-the- counter or prescription medicines for pain, discomfort, or fever as directed by your caregiver. HOME CARE INSTRUCTIONS Swollen lymph glands usually return to normal when the underlying medical condition goes away. If they persist, contact your health-care provider. He/she might prescribe antibiotics or other treatments, depending on the diagnosis. Take any medications exactly as prescribed. Keep any follow-up appointments made to check on the condition of your enlarged nodes. SEEK MEDICAL CARE IF: Swelling lasts for more than two weeks. You have symptoms such as weight loss, night sweats, fatigue, or fever that does not go away. The lymph nodes are hard, seem fixed to the skin, or are growing rapidly. Skin over the lymph nodes is red and inflamed. This could mean there is an infection. SEEK IMMEDIATE MEDICAL CARE IF: Fluid starts leaking from the area of the enlarged lymph node. You develop a fever of 102 F (38.9 C) or greater. Severe pain develops (not necessarily at the site of a large lymph node). You develop chest pain or shortness of breath. You develop worsening abdominal pain. MAKE SURE YOU: Understand these instructions. Will watch your condition. Will get help right away if you are not doing well or get worse. Document Released: 02/11/2009 Document Revised: 09/19/2014 Document Reviewed: [facility] Patient Information 2015 [facility]. This information is not intended to replace advice given to you by your health care provider. Make sure you discuss any questions you have with your health care provider. Procedures Bone Densitometry Bone densitometry is a special X-ray that measures your bone density and can be used to help predict your risk of bone fractures. This test is used to determine bone mineral content and density to diagnose osteoporosis. Osteoporosis is the loss of bone that may cause the bone to become weak. Osteoporosis commonly occurs in women entering menopause. However, it may be found in men and in people with other diseases. PREPARATION FOR TEST No preparation necessary. WHO SHOULD BE TESTED? All women older than 65. Postmenopausal women (50 to 65) with risk factors for osteoporosis. People with a previous fracture caused by normal activities. People with a small body frame (less than 127 poundsor a body mass index [BMI] of less than 21). People who have a parent with a hip fracture or history of osteoporosis. People who smoke. People who have rheumatoid arthritis. Anyone who engages in excessive alcohol use (more than 3 drinks most days). Women who experience early menopause. WHEN SHOULD YOU BE RETESTED? Current guidelines suggest that you should wait at least 2 years before doing a bone density test again if your first test was normal.Recent studies indicated that women with normal bone density may be able to wait a few years before needing to repeat a bone density test. You should discuss this with your caregiver. NORMAL FINDINGS Normal: less than standard deviation below normal (greater than -1). Osteopenia: 1 to 2.5 standard deviations below normal (-1 to -2.5). Osteoporosis: greater than 2.5 standard deviations below normal (less than -2.5). Test results are reported as a "T score" and a "Z score."The T score is a number that compares your bone density with the bone density of healthy, young women.The Z score is a number that compares your bone density with the scores of women who are the same age, gender, and race. Ranges for normal findings may vary among different laboratories and hospitals. You should always check with your doctor after having lab work or other tests done to discuss the meaning of your test results and whether your values are considered within normal limits. MEANING OF TEST Your caregiver will go over the test results with you and discuss the importance and meaning of your results, as well as treatment options and the need for additional tests if necessary. OBTAINING THE TEST RESULTS It is your responsibility to obtain your test results. Ask the lab or department performing the test when and how you will get your results. Document Released: 05/27/2005 Document Revised: 07/27/2012 Document Reviewed: [employer] Patient Information 2015 [employer]. This information is not intended to replace advice given to you by your health care provider. Make sure you discuss any questions you have with your health care provider. No follow up information was provided. Extracted from: Title: Female Physical Author: Gray Jaramillo MD Date: 03/15/15 Impression and Plan Diagnosis Axillary lymphadenopathy (KBZ12-LD R59.0, Working, Medical). CLL (chronic lymphocytic leukemia) (KNF86-DO C91.10, Working, Medical). Carpal tunnel syndrome, right (IKU67-IW G56.01, Working, Medical). Osteopenia (SUA62-TL M85.852, Working, Medical). Overflow stress urinary incontinence in female (ZOR49-OT N39.3, Working, Medical ). Dry eyes (BEG96-BR H04.123, Working, Medical). Plan: 1) Get your Hepatitis A series of immunizations. 2) Fasting lab today. 3) Schedule a bone density test. 4) Continue your current meds. 5) See me in 6 months and as needed. 6) Continue your healthy diet and daily walking exercise. . Orders Orders (Selected) Outpatient Orders Ordered Office Visit Level 5 Est 17149: Future (On Hold) CMP: DEXA Axial Skeleton, BD Bone Density: Occult Blood X 3, Stool: Routine Urinalysis: TSH 3rd Generation: . Dx/Order Association Plan: Diagnosis: Axillary lymphadenopathy Comment: Ordered: Office Visit Level 5 Est 13035; 03/15/15 9:28:00 CDT, CLL (chronic lymphocytic leukemia) | Axillary lymphadenopathy | Osteopenia | Overflow stress urinary incontinence in female Diagnosis: CLL (chronic lymphocytic leukemia) Comment: Ordered: Office Visit Level 5 Est [id number]; 03/15/15 9:28:00 CDT, CLL (chronic lymphocytic leukemia) | Axillary lymphadenopathy | Osteopenia | Overflow stress urinary incontinence in female Diagnosis: Carpal tunnel syndrome, right Comment: Diagnosis: Dry eyes Comment: Diagnosis: Osteopenia Comment: Ordered: Office Visit Level 5 Est 93365; 03/15/15 9:28:00 CDT, CLL (chronic lymphocytic leukemia) | Axillary lymphadenopathy | Osteopenia | Overflow stress urinary incontinence in female Diagnosis: Overflow stress urinary incontinence in female Comment: Ordered: Office Visit Level 5 Est 37602; 03/15/15 9:28:00 CDT, CLL (chronic lymphocytic leukemia) | Axillary lymphadenopathy | Osteopenia | Overflow stress urinary incontinence in female Diagnosis: Overflow stress urinary incontinence in female Comment: Diagnosis: Fatigue Comment: Diagnosis: Osteopenia Comment: Diagnosis: Colon cancer screening Comment: Diagnosis: Axillary lymphadenopathy Comment: Diagnosis: Fatigue Comment: End of Orders . Future Scheduled TestsReferral* Return to Clinic 06/07/14 5:31 PM Referrals to Other Providers Referred by: José Almanzar MD
--- OUTSIDE RECORDS SUMMARY | 2016-08-26 15:46 | XMS REPORT | Referral Summary ---
Author Author [facility] Organization [facility] Address Unknown Phone Unavailable Care Team Providers Care Barrel Inspector Tight Name Role Phone Margarita Jaramlilo Primary Care Physician [phone] Encounter VC Date(s): 01/10/15 - 01/10/15 [facility], [address] [place] [address]- [place] Discharge Disposition: 01-Home or Self Care Attending Physician: Gray Jaramillo MD Admitting Physician: Gray Jaramillo MD Vital Signs Most recent to 1 oldest [Reference Range]: Temperature Tympanic 36.7 degC [36.6-38.1 degC] (01/10/15 10:29 AM) Peripheral Pulse 64 bpm Rate [60-100 bpm] (01/10/15 10:29 AM) Respiratory Rate 16 br/min [14-20 br/min] (01/10/15 10:29 AM) Blood Pressure 110/68 mmHg [90-140/60-90 mmHg] (01/10/15 10:29 AM) Problem List Condition Effective Dates Status [...] 0 Refill(s) Start Date: 11/10/13 Status: Ordered Bedias 5 mg-325 mg oral tablet 1-2 tabs, [...] Transforaminal 06/11/12 Hospital admission/chemotherapy 2010 Removal/lymph node 2010 Sigmoidoscopy 2008 Arthroscopy of knee/left 2001 Fulton's neuroma/excision x 3 2000 Arthroscopy of knee/left 1997 Appendectomy 1987 Repair/diaphragm 1987 Cataract1 Cervical polypectomy 1bilateral IOLs Social History Social History Type Response Smoking Status Never smoker Assessment and Plan Extracted from: Title: Ambulatory Patient Education Author: Gray Jaramillo MD Date: 01/10 Family Medicine Carpal Tunnel Syndrome The carpal tunnel is a narrow area located on the palm side of your wrist. The tunnel is formed by the wrist bones and ligaments. Nerves, blood vessels, and tendons pass through the carpal tunnel. Repeated wrist motion or certain diseases may cause swelling within the tunnel. This swelling pinches the main nerve in the wrist (median nerve) and causes the painful hand and arm condition called carpal tunnel syndrome. CAUSES Repeated wrist motions. Wrist injuries. Certain diseases like arthritis, diabetes, alcoholism, hyperthyroidism, and kidney failure. Obesity. . SYMPTOMS A "pins and needles" feeling in your fingers or hand. Tingling or numbness in your fingers or hand. An aching feeling in your entire arm. Wrist pain that goes up your arm to your shoulder. Pain that goes down into your palm or fingers. A weak feeling in your hands. DIAGNOSIS Your caregiver will take your history and perform a physical exam. An electromyography test may be needed. This test measures electrical signals sent out by the muscles. The electrical signals are usually slowed by carpal tunnel syndrome. You may also need X-rays. TREATMENT Carpal tunnel syndrome may clear up by itself. Your caregiver may recommend a wrist splint or medicine such as a nonsteroidal anti-inflammatory medicine. Cortisone injections may help. Sometimes, surgery may be needed to free the pinched nerve. HOME CARE INSTRUCTIONS Take all medicine as directed by your caregiver. Only take over-the- counter or prescription medicines for pain, discomfort, or fever as directed by your caregiver. If you were given a splint to keep your wrist from bending, wear it as directed. It is important to wear the splint at night. Wear the splint for as long as you have pain or numbness in your hand, arm, or wrist. This may take 1 to 2 months. Rest your wrist from any activity that may be causing your pain. If your symptoms are work-related, you may need to talk to your employer about changing to a job that does not require using your wrist. Put ice on your wrist after long periods of wrist activity. Put ice in a plastic bag. Place a towel between your skin and the bag. Leave the ice on for 15-20 minutes, 03-04 times a day. Keep all follow-up visits as directed by your caregiver. This includes any orthopedic referrals, physical therapy, and rehabilitation. Any delay in getting necessary care could result in a delay or failure of your condition to heal. SEEK IMMEDIATE MEDICAL CARE IF: You have new, unexplained symptoms. Your symptoms get worse and are not helped or controlled with medicines. MAKE SURE YOU: Understand these instructions. Will watch your condition. Will get help right away if you are not doing well or get worse. Document Released: 05/02/2001 Document Revised: 07/27/2012 Document Reviewed: [employer] Patient Information 2015 [employer]. This information is not intended to replace advice given to you by your health care provider. Make sure you discuss any questions you have with your health care provider. No follow up information was provided. Extracted from: Title: cervical stenosis, CTS, CLL Author: Gray Jaramillo MD Date: Impression and Plan Diagnosis Axillary lymphadenopathy (ICD9 785.6, Working, Medical). Carpal tunnel syndrome, right (ICD9 354.0, Working, Medical). CLL (chronic lymphocytic leukemia) (ICD9 204.10, Working, Medical). Spinal stenosis in cervical region (disorder) (ICD9 723.0, Working, Medical). Plan: Continue your current meds and followup with Dr. Santos, including periodic lab monitoring. See me in 2l months for your physical and as needed. . Orders Orders (Selected) Outpatient Orders Ordered Office Visit Level 4 Est 47692: . Dx/Order Association Plan: Diagnosis: Axillary lymphadenopathy Comment: Ordered: Office Visit Level 4 Est 45954; 01/10/15 17:21:00 CDT, CLL (chronic lymphocytic leukemia) | Axillary lymphadenopathy | Carpal tunnel syndrome, right | Spinal stenosis in cervical region (disorder) Diagnosis: CLL (chronic lymphocytic leukemia) Comment: Ordered: Office Visit Level 4 Est 18568; 01/10/15 17:21:00 CDT, CLL (chronic lymphocytic leukemia) | Axillary lymphadenopathy | Carpal tunnel syndrome, right | Spinal stenosis in cervical region (disorder) Diagnosis: Carpal tunnel syndrome, right Comment: Ordered: Office Visit Level 4 Est 18073; 01/10/15 17:21:00 CDT, CLL (chronic lymphocytic leukemia) | Axillary lymphadenopathy | Carpal tunnel syndrome, right | Spinal stenosis in cervical region (disorder) Diagnosis: Spinal stenosis in cervical region (disorder) Comment: Ordered: Office Visit Level 4 Est [id number]; 01/10/15 17:21:00 CDT, CLL (chronic lymphocytic leukemia) | Axillary lymphadenopathy | Carpal tunnel syndrome, right | Spinal stenosis in cervical region (disorder) End of Orders .
--- OUTSIDE RECORDS SUMMARY | 2016-08-26 15:47 | XMS REPORT | Referral Summary ---
Author Author [facility], [facility] Organization [facility] Address Unknown Phone Unavailable Care Team Providers Care Jewel Stringer Name Role Phone Margarita Jaramillo Primary Care Physician [phone] Encounter [facility] Date(s): 09/11/15 - 09/11/15 [facility], [address] [place] [address]- Discharge Disposition: 01-Home or Self Care Attending Physician: Gray Jaramillo MD Admitting Physician: Gray Jaramillo MD Vital Signs Most recent to 1 oldest [Reference Range]: Temperature Tympanic 36.5 degC [36.6-38.1 degC] *LOW* (09/11/15 9:56 AM) Peripheral Pulse 68 bpm Rate [60-100 bpm] (09/11/15 9:56 AM) Blood Pressure 114/62 mmHg [90-140/60-90 mmHg] (09/11/15 9:56 AM) Problem List Condition Effective Dates Status [...] 0 Refill(s) Start Date: 11/10/13 Status: Ordered ibrutinib 140 mg oral capsule 420 mg 3 caps, Oral, Daily, 0 Refill(s) Start Date: 09/11/15 Status: Ordered Results No data available for [...] 06/03/13 Procedure/Right C5-6/C6-7 Transforaminal 06/11/12 Hospital admission/chemotherapy 2011 Removal/lymph node 2011 Sigmoidoscopy 2008 Arthroscopy of knee/left 2001 Fulton's neuroma/excision x 3 2000 Arthroscopy of knee/left 1998 Appendectomy 1988 Repair/diaphragm 1988 Cataract2 Cervical polypectomy 1with lysis of adhesions 2bilateral IOLs Social History Social History Type Response Smoking Status Never smoker Assessment and Plan Extracted from: Title: Ambulatory Patient Education Author: Gray Jaramillo MD Date: 09/10 Family Medicine Spinal Stenosis Spinal stenosis is an abnormal narrowing of the canals of your spine (vertebrae) . CAUSES Spinal stenosis is caused by areas of bone pushing into the central canals of your vertebrae. This condition can be present at (congenital). It also may be caused by arthritic deterioration of your vertebrae (spinal degeneration) . SYMPTOMS Pain that is generally worse with activities, particularly standing and walking. Numbness, tingling, hot or cold sensations, weakness, or weariness in your legs. Frequent episodes of falling. A foot-slapping gait that leads to muscle weakness. DIAGNOSIS Spinal stenosis is diagnosed with the use of magnetic resonance imaging (MRI) or computed tomography (CT). TREATMENT Initial therapy for spinal stenosis focuses on the management of the pain and other symptoms associated with the condition. These therapies include: Practicing postural changes to lessen pressure on your nerves. Exercises to strengthen the core of your body. Loss of excess body weight. The use of nonsteroidal anti-inflammatory medicines to reduce swelling and inflammation in your nerves. When therapies to manage pain are not successful, surgery to treat spinal stenosis may be recommended. This surgery involves removing excess bone, which puts pressure on your nerve roots. During this surgery (laminectomy), the posterior nathaniel arch (lamina) and excess bone around the facet joints are removed. This information is not intended to replace advice given to you by your health care provider. Make sure you discuss any questions you have with your health care provider. Document Released: 07/25/2004 Document Revised: 09/19/2014 Document Reviewed: ExitCare Patient Information 2015 [employer]. Urinary Incontinence Urinary incontinence is the involuntary [...] 02/21/2015 Document Reviewed: ExitCare Patient Information 2015 [employer]. No follow up information was provided. Extracted from: Title: CLL, stress incontinence Author: Gray Jaramillo MD Date: 09/11/15 Impression and Plan Diagnosis Abnormal weight loss (WIO43-EK R63.4, Working, Medical). CLL (chronic lymphoid leukemia) with failed remission (LIX04-IB C91.10, Working , Medical). Female stress incontinence (EBA29-ZY N39.3, Working, Medical). Spinal stenosis in cervical region (disorder) (KEL35-ZG M48.02, Working, Medical ). Plan: 1) Continue your current meds. 2) Healthy diet and daily exercise helps most things. Eat more. 3) See me in 3 months and as needed. 4) You may get your second hepatitis A shot when it is due.. Orders Orders (Selected) Outpatient Orders Ordered Office Visit Level 4 Est 07334: . Dx/Order Association Plan: Diagnosis: Abnormal weight loss Comment: Ordered: Office Visit Level 4 Est 04888; 09/11/15 10:17:00 CDT, Abnormal weight loss | CLL (chronic lymphoid leukemia) with failed remission | Female stress incontinence | Spinal stenosis in cervical region (disorder) Diagnosis: CLL (chronic lymphoid leukemia) with failed remission Comment: Ordered: Office Visit Level 4 Est 72932; 09/11/15 10:17:00 CDT, Abnormal weight loss | CLL (chronic lymphoid leukemia) with failed remission | Female stress incontinence | Spinal stenosis in cervical region (disorder) Diagnosis: Female stress incontinence Comment: Ordered: Office Visit Level 4 Est 45337; 09/11/15 10:17:00 CDT, Abnormal weight loss | CLL (chronic lymphoid leukemia) with failed remission | Female stress incontinence | Spinal stenosis in cervical region (disorder) Diagnosis: Spinal stenosis in cervical region (disorder) Comment: Ordered: Office Visit Level 4 Est 62761; 09/11/15 10:17:00 CDT, Abnormal weight loss | CLL (chronic lymphoid leukemia) with failed remission | Female stress incontinence | Spinal stenosis in cervical region (disorder) End of Orders ."
--- OUTSIDE RECORDS SUMMARY | 2016-08-26 15:47 | XMS REPORT | Continuity of Care Document ---
Author Author [facility] Organization [facility] Address Unknown Phone Unavailable Support Name Relationship Address Phone TATE WIGGINS MD Caregiver [address] [place] [address] Unavailable BRINA SCHOFIELD MD Caregiver [address] [place] [address] Unavailable ZURI BEDOLLA Next Of Kin [place], [place] [id number] Insurance Providers Guarantor Lissy Bedolla Address [address] [address] Email DENIED/NO TO PT PORT Payer Capital Float Select Plan 65 Policy Number [id number] Subscriber's Name Lissy Bedolla Relationship 18 Self Group Number [id number] Effective Date 09 Payer Medicare Policy Number [id number] Subscriber's Name Lissy Bedolla Relationship 18 Self [...] Cap Oral Twice A Day 07/16/15 Hydrocodone/Acetaminophen ([place] 5-325 Tablet) 1 Each Tablet 1-2 Tab Oral Every 4-6 Hours as needed for Pain 30 Tablet 07/16/15 Hydrocodone/Acetaminophen ([place] 5-325 Tablet) 1 Each Tablet 1-2 Tab [...] Not Applicable Not Applicable Hospital Discharge Instructions Current inpatient/outpatient. Discharge instructions are currently unavailable. Plan of Care Current inpatient/outpatient. The plan of care is currently unavailable Functional Status No functional status results. Allergies, [...] Completed 03/21/16 BREAST TOMOSYNTHESIS BI Completed 03/21/16 [id number]"SCREENING MAMMOGRAPHY, PRODUCING DIRECT DIGITAL IMAGE Completed Encounters Encounter Location Arrival/Admit Date Discharge/Depart Date Attending Provider Registered Recurring [facility] 05/16/16 8:52am TATE WIGGINS MD Discharged Recurring [facility] 04/18/16 8:56am 05/18/16 11:12pm TATE WIGGINS MD Registered Clinic [facility] 03/21/16 2:47pm [facility]BERRY, MEDICAL Discharged [facility] 11/30/15 7:55am 04/07/16 11:59pm TATE WIGGINS MD
--- OUTSIDE RECORDS SUMMARY | 2016-08-26 15:47 | XMS REPORT | Referral Summary ---
Author Organization Unknown Address Unknown Phone Unavailable Care Team Providers Care Glass Blower Name Role Phone Margarita Jaramillo Primary Care Physician [phone] Encounter [facility] [id number] Date(s): 08/30/14 - 08/30/14 [facility] [address] [place], [place] [address] Discharge Diagnosis: Solitary pulmonary nodule Discharge Diagnosis: CLL (chronic lymphocytic leukemia) Discharge Disposition: Home or Self Care Attending Physician: José Almanzar MD Admitting Physician: José Almanzar MD Vital Signs Most recent to 1 oldest [Reference Range]: Temperature Oral 36.5 degC [35.8-37.3 degC] (08/30/14 10:26 AM) Peripheral Pulse 70 bpm Rate [60-100 bpm] (08/30/14 10:26 AM) Respiratory Rate 14 br/min [14-20 br/min] (08/30/14 10:26 AM) Blood Pressure 120/68 mmHg [90-140/60-90 mmHg] (08/30/14 10:26 AM) Most recent to 1 oldest [Reference Range]: SpO2 99 % (08/30/14 10:26 AM) Problem List Condition Effective Dates Status [...] Extracted from: Title: Office Visit Note Author: José Almanzar MD Date: 08/30/14 Assessment/Plan 1.Solitary pulmonary nodule We'll obtain a direct comparison to the April CAT scan. By report the right lower lobe lung mass is gone. The 4 mm right upper lobe nodule mentioned new since 2010 is less certain. 2.CLL (chronic lymphocytic leukemia) Future Scheduled TestsReferral* Return to Clinic 06/07/14 5:31 PM Referrals to Other Providers Referred by: José Almanzar MD
--- OUTSIDE RECORDS SUMMARY | 2016-08-26 15:47 | XMS REPORT | Referral Summary ---
Author Author [facility] Organization [facility] Address Unknown Phone Unavailable Care Team Providers Care Ore Miner Name Role Phone Margarita Jaramillo Primary Care Physician [phone] Encounter [facility] Date(s): 01/10/15 - 01/10/15 [facility], [address] [place] [address] [place] Discharge Disposition: [...] of knee/left 2002 Fulton's neuroma/excision x 3 2001 Arthroscopy of knee/left 1998 Appendectomy 1988 Repair/diaphragm [...] Released: 05/02/2001 Document Revised: 07/27/2012 Document Reviewed: [facility] Patient Information 2015 [employer]. This information is not intended to replace [...] Orders Ordered Office Visit Level 4 Est 61390: . Dx/Order Association Plan: Diagnosis: Axillary lymphadenopathy Comment: Ordered: Office Visit Level 4 Est 10829; 01/10/15 17:21:00 CDT, CLL (chronic lymphocytic leukemia) | Axillary lymphadenopathy | Carpal tunnel syndrome, right | Spinal stenosis in cervical region (disorder) Diagnosis: CLL (chronic lymphocytic leukemia) Comment: Ordered: Office Visit Level 4 Est 44698; 01/10/15 17:21:00 CDT, CLL (chronic lymphocytic leukemia) | Axillary lymphadenopathy | Carpal tunnel syndrome, right | Spinal stenosis in cervical region (disorder) Diagnosis: Carpal tunnel syndrome, right Comment: Ordered: Office Visit Level 4 Est 37980; 01/10/15 17:21:00 CDT, CLL (chronic lymphocytic leukemia) | Axillary lymphadenopathy | Carpal tunnel syndrome, right | Spinal stenosis in cervical region (disorder) Diagnosis: Spinal stenosis in cervical region (disorder) Comment: Ordered: Office Visit Level 4 Est 59207; 01/10/15 17:21:00 CDT, CLL (chronic lymphocytic leukemia) | Axillary lymphadenopathy | Carpal tunnel syndrome, right | Spinal stenosis in cervical region (disorder) End of Orders . Future Scheduled TestsReferral* Return to Clinic 06/07/14 5:31 PM Referrals to Other Providers Referred by: José Almanzar MD
--- OUTSIDE RECORDS SUMMARY | 2016-08-26 15:47 | XMS REPORT | Referral Summary ---
Author Author [facility] Organization [facility] Address Unknown Phone Unavailable Care Team Providers Care Health Promotion Educator Name Role Phone Margarita Jaramillo Primary Care Physician [phone] Encounter [facility] Date(s): 12/12/14 - 12/12/14 [facility] [address] [place] [address]- Discharge Disposition: 01-Home or Self Care Attending Physician: Gray Jaramillo MD Admitting Physician: Gray Jaramillo MD Vital Signs Most recent to 1 oldest [Reference Range]: Temperature Tympanic 36.4 degC [36.6-38.1 degC] *LOW* (12/12/14 2:05 PM) Peripheral Pulse 72 bpm Rate [60-100 bpm] (12/12/14 2:05 PM) Respiratory Rate 16 br/min [14-20 br/min] (12/12/14 2:05 PM) Blood Pressure 98/56 mmHg [90-140/60-90 mmHg] (12/12/14 2:05 PM) SpO2 97 % (12/12/14 2:05 PM) Problem List Condition Effective Dates Status [...] 0 Refill(s) Start Date: 11/10/13 Status: Ordered Bellvue 5 mg-325 mg oral tablet 1-2 tabs, [...] of knee/left 1997 Appendectomy 1988 Repair/diaphragm 1988 Cataract1 Cervical polypectomy 1bilateral IOLs Social History Social History Type Response Smoking Status Never smoker Assessment and Plan Extracted from: Title: Ambulatory Patient Education Author: Gray Jaramillo MD Date: 12/12 Allergy Sinusitis Sinusitis is redness, soreness, and puffiness (inflammation) of the air pockets in the bones of your face (sinuses). The redness, soreness, and puffiness can cause air and mucus to get trapped in your sinuses. This can allow germs to grow and cause an infection. HOME CARE Drink enough fluids to keep your pee (urine) clear or pale yellow. Use a humidifier in your home. Run a hot shower to create steam in the bathroom. Sit in the bathroom with the door closed. Breathe in the steam 34 times a day. Put a warm, moist washcloth on your face 34 times a day, or as told by your doctor. Use salt water sprays (saline sprays) to wet the thick fluid in your nose. This can help the sinuses drain. Only take medicine as told by your doctor. GET HELP RIGHT AWAY IF: Your pain gets worse. You have very bad headaches. You are sick to your stomach (nauseous). You throw up (vomit). You are very sleepy (drowsy) all the time. Your face is puffy (swollen). Your vision changes. You have a stiff neck. You have trouble breathing. MAKE SURE YOU: Understand these instructions. Will watch your condition. Will get help right away if you are not doing well or get worse. Document Released: 10/21/2008 Document Revised: 01/27/2013 Document Reviewed: ExitCare Patient Information [address] [facility]. This information is not intended to replace advice given to you by your health care provider. Make sure you discuss any questions you have with your health care provider. No follow up information was provided. Extracted from: Title: Sinusitis, CLL Author: Gray Jaramillo MD Date: 12/12/14 Impression and Plan Diagnosis Acute sinusitis (ICD9 461.9, Working, Medical). Axillary lymphadenopathy (ICD9 785.6, Working, Medical). CLL (ICD9 204.10, Working, Medical). Plan: Take the Augmentin as directed. , See me in 3 months for your physical, and as needed. . Orders Orders (Selected) Outpatient Orders Ordered Office Visit Level 4 Est 49740: Prescriptions Prescribed amoxicillin-clavulanate 875 mg-125 mg oral tablet: 1 tabs, Oral, q12hr, for 10 days, 20 tabs, 0 Refill(s). Dx/Order Association Plan: Diagnosis: Acute sinusitis Comment: Ordered: Office Visit Level 4 Est 78968; 12/12/14 14:26:00 CDT, Acute sinusitis | Axillary lymphadenopathy | CLL Diagnosis: Axillary lymphadenopathy Comment: Ordered: Office Visit Level 4 Est 81976; 12/12/14 14:26:00 CDT, Acute sinusitis | Axillary lymphadenopathy | CLL Diagnosis: CLL Comment: Ordered: Office Visit Level 4 Est 11811; 12/12/14 14:26:00 CDT, Acute sinusitis | Axillary lymphadenopathy | CLL Additional Orders: Comment: Ordered: amoxicillin-clavulanate 875 mg-125 mg oral tablet,1 tabs, Oral, q12hr, X 10 days, # 20 tabs, 0 Refill(s), Pharmacy: [facility] # [id number] End of Orders ."
--- OUTSIDE RECORDS SUMMARY | 2016-08-26 15:47 | XMS REPORT | Referral Summary ---
Author Organization Unknown Address Unknown Phone Unavailable Care Team Providers Care Sifter And Miller Name Role Phone Margarita Jaramillo Primary Care Physician [phone] Encounter [facility] Date(s): 07/01/14 - 07/01/14 [facility] [address] [place] [address] Discharge Diagnosis: CLL (chronic lymphocytic leukemia) Discharge Diagnosis: Mass of lower lobe of right lung Discharge Diagnosis: At high risk for pneumonia Discharge Diagnosis: Post zoster neuralgia Discharge Diagnosis: Acute sinusitis Discharge Diagnosis: Acute bronchitis Discharge Disposition: Home or Self Care Attending Physician: Gray Jaramillo MD Admitting Physician: Gray Jaramillo MD Vital Signs Most recent to 1 oldest [Reference Range]: Temperature Tympanic 36.7 degC [36.6-38.1 degC] (07/01/14 2:38 PM) Peripheral Pulse 76 bpm Rate [60-100 bpm] (07/01/14 2:38 PM) Blood Pressure 114/60 mmHg [90-140/60-90 mmHg] (07/01/14 2:38 PM) Problem List Condition Effective Dates Status [...] burning Active meloxicam abdominal pain Active Medications amoxicillin-clavulanate 875 mg-125 mg oral tablet 1 tabs, Oral, q12hr, X 10 days, # 20 tabs, 0 Refill(s), Pharmacy: [facility] #[id number] Start Date: 07/01/14 Stop Date: 07/11/14 Status: Ordered Calcium 600+D tabs, Oral, BID, 0 Refill(s) [...] Patient Education Author: Gray Jaramillo MD Date: 07/01 Family Medicine Acute Bronchitis You have acute bronchitis. This means you have a chest cold. The airways in your lungs are red and sore (inflamed ). Acute means it is sudden onset. CAUSES Bronchitis is most often caused by the same virus that causes a cold. SYMPTOMS Body aches. Chest congestion. Chills. Cough. Fever. Shortness of breath. Sore throat. TREATMENT Acute bronchitis is usually treated with rest, fluids, and medicines for relief of fever or cough. Most symptoms should go away after a few days or a week. Increased fluids may help thin your secretions and will prevent dehydration. Your caregiver may give you an inhaler to improve your symptoms. The inhaler reduces shortness of breath and helps control cough. You can take over-the- counter pain relievers or cough medicine to decrease coughing, pain, or fever. A cool-air vaporizer may help thin bronchial secretions and make it easier to clear your chest. Antibiotics are usually not needed but can be prescribed if you smoke, are seriously ill, have chronic lung problems, are elderly, or you are at higher risk for developing complications.Allergies and asthma can make bronchitis worse. Repeated episodes of bronchitis may cause longstanding lung problems. Avoid smoking and secondhand smoke.Exposure to cigarette smoke or irritating chemicals will make bronchitis worse. If you are a cigarette smoker, consider using nicotine gum or skin patches to help control withdrawal symptoms. Quitting smoking will help your lungs heal faster. Recovery from bronchitis is often slow, but you should start feeling better after 2 to 3 days. Cough from bronchitis frequently lasts for 3 to 4 weeks. To prevent another bout of acute bronchitis: Quit smoking. Wash your hands frequently to get rid of viruses or use a hand player services representative. Avoid other people with cold or virus symptoms. Try not to touch your hands to your mouth, nose, or eyes. SEEK IMMEDIATE MEDICAL CARE IF: You develop increased fever, chills, or chest pain. You have severe shortness of breath or bloody sputum. You develop dehydration, fainting, repeated vomiting, or a severe headache. You have no improvement after 1 week of treatment or you get worse. MAKE SURE YOU: Understand these instructions. Will watch your condition. Will get help right away if you are not doing well or get worse. Document Released: 06/12/2005 Document Revised: 07/27/2012 Document Reviewed: [facility] Patient Information 2014 [employer]. Postherpetic Neuralgia Shingles is a painful disease. [...] Released: 07/26/2003 Document Revised: 07/27/2012 Document Reviewed: [facility] Patient Information [facility] [employer]. No follow up information was provided. Extracted from: Title: bronchitis Author: Gray Jaramillo MD Date: 07/01/14 Impression and Plan Diagnosis Post zoster neuralgia (ICD9 053.19, Discharge, Medical). Mass of lower lobe of right lung (ICD9 786.6, Discharge, Medical). CLL (chronic lymphocytic leukemia) (ICD9 204.10, Discharge, Medical). Acute sinusitis (ICD9 461.8, Discharge, Medical). Acute bronchitis (ICD9 466.0, Discharge, Medical). Plan: Take the Augmentin as directed. Prevnar-13 vaccine today. Rest and humidity are helpful. Followup as needed.. Orders Orders (Selected) Outpatient Orders Ordered Office Visit Level 4 Est 15562: pneumococcal 13-valent conjugate vaccine: 0.5 mL, IntraMuscular, Once Prescriptions Prescribed amoxicillin-clavulanate 875 mg-125 mg oral tablet: 1 tabs, Oral, q12hr, 20 tabs. Dx/Order Association Plan: Diagnosis: Acute bronchitis Comment: Ordered: Office Visit Level 4 Est 32812; 07/01/14 14:54:00 SENIOR OPERATIONS ANALYST, Acute bronchitis | Acute sinusitis | Mass of lower lobe of right lung | CLL ( chronic lymphocytic leukemia) | Post zoster neuralgia Diagnosis: Acute sinusitis Comment: Ordered: Office Visit Level 4 Est 63690; 07/01/14 14:54:00 SENIOR OPERATIONS ANALYST, Acute bronchitis | Acute sinusitis | Mass of lower lobe of right lung | CLL ( chronic lymphocytic leukemia) | Post zoster neuralgia Diagnosis: At high risk for pneumonia Comment: Ordered: pneumococcal 13-valent conjugate vaccine; 0.5 mL, IntraMuscular, Once, Order Duration: 1 doses, First Dose: 07/01/14 15:00:00 SENIOR OPERATIONS ANALYST , Stop Date: 07/01/14 15:00:00 SENIOR OPERATIONS ANALYST, Form: Injection Office Visit Level 4 Est 66345; 07/01/14 14:54:00 SENIOR OPERATIONS ANALYST, Acute bronchitis | Acute sinusitis | Mass of lower lobe of right lung | CLL (chronic lymphocytic leukemia) | Post zoster neuralgia Diagnosis: CLL (chronic lymphocytic leukemia) Comment: Ordered: Office Visit Level 4 Est 87113; 07/01/14 14:54:00 SENIOR OPERATIONS ANALYST, Acute bronchitis | Acute sinusitis | Mass of lower lobe of right lung | CLL ( chronic lymphocytic leukemia) | Post zoster neuralgia Diagnosis: Mass of lower lobe of right lung Comment: Ordered: Office Visit Level 4 Est 89454; 07/01/14 14:54:00 SENIOR OPERATIONS ANALYST, Acute bronchitis | Acute sinusitis | Mass of lower lobe of right lung | CLL ( chronic lymphocytic leukemia) | Post zoster neuralgia Diagnosis: Post zoster neuralgia Comment: Ordered: Office Visit Level 4 Est 87961; 07/01/14 14:54:00 SENIOR OPERATIONS ANALYST, Acute bronchitis | Acute sinusitis | Mass of lower lobe of right lung | CLL ( chronic lymphocytic leukemia) | Post zoster neuralgia Additional Orders: Comment: Ordered: amoxicillin-clavulanate 875 mg-125 mg oral tablet,1 tabs, Oral, q12hr, X 10 days, # 20 tabs, 0 Refill(s), Pharmacy: [facility] # [id number] End of Orders . Future Scheduled TestsReferral* Return to Clinic 06/07/14 5:31 PM Referrals to Other Providers Referred by: José Almanzar MD"
--- OUTSIDE RECORDS SUMMARY | 2016-08-26 15:47 | XMS REPORT | Continuity of Care Document ---
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 Lump on face - *Chronic [...] neuritis or radiculitis nos - *Symptomatic Carpal Tunnel Syndrome - *Symptomatic Brachial neuritis or radiculitis nos - *Chronic Cervicalgia - *Chronic Brachial neuritis or radiculitis nos - *Chronic Spinal stenosis in cervical region - *Chronic 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 Spinal stenosis in cervical region - Chronic Osteopenia - *Chronic Cervical spinal stenosis - [...] CARTILAGE DIS NOS - URINARY FREQUENCY - CLL (chronic lymphocytic leukemia) - *Chronic Osteopenia [...] Oral route twice a day - Active [place] 7.5 mg-325 mg tablet take 1 tablet [...] Height Weight Pulse Rate Blood Pressure Temperature /11:27:00 60.00 in 120.00 lbs 72 /min 131/70 mm[Hg] 97.9 F Procedures Procedure Date Unknown Encounters Encounter Location Date Patient Visit [facility] FC Pain Patient Visit [facility] Patient Visit [facility] Patient Visit [facility] Patient Visit [facility] Pain Patient Visit [facility] Pain Patient Visit [facility] Pain Patient Visit [facility] New FM Patient Visit [facility] Pain Patient Visit [facility] Pain Patient Visit [facility] FM Patient Visit [facility] New FM Patient Visit [facility] Pain Patient Visit Conversion Patient Visit [facility] FM Patient Visit [facility] Phys & Rehab Patient Visit [facility] Patient Visit [facility] Advance Directives Directive Effective Date Unknown
--- OUTSIDE RECORDS SUMMARY | 2016-08-26 15:47 | XMS REPORT | Referral Summary ---
Author Author [facility] Organization [facility] Address Unknown Phone Unavailable Care Team Providers Care Contractor Field Hauling Name Role Phone Margarita Jaramillo Primary Care Physician [phone] Encounter Date(s): 03/04/16 - 03/04/16 [facility], [address] [place] [id number]- Discharge Diagnosis: Hand cramps Discharge Diagnosis: Abnormal loss of weight Discharge Diagnosis: CLL (chronic lymphocytic leukemia) Discharge Diagnosis: Mild epistaxis Discharge Diagnosis: Leg cramps Discharge Diagnosis: Need for influenza vaccination Discharge Disposition: 01-Home or Self Care Attending Physician: Gray Jaramillo MD Admitting Physician: Gray Jaramillo MD Vital Signs Most recent to 1 oldest [Reference Range]: Temperature Tympanic 36.4 degC [36.6-38.1 degC] *LOW* (03/04/16 10:26 AM) Peripheral Pulse 64 bpm Rate [60-100 bpm] (03/04/16 10:26 AM) Blood Pressure 116/62 mmHg [90-140/60-90 mmHg] (03/04/16 10:26 AM) Problem List Condition Effective Dates [...] Refill(s) Start Date: 09/11/15 Status: Ordered Results Chemistry Most recent to 1 oldest [Reference Range]: Sodium Lvl [135-144 134 mEq/L mEq/L] *LOW* (03/04/16 11:27 AM) Potassium Lvl 4.2 mEq/L [3.5-5.2 mEq/L] (03/04/16 11:27 AM) Chloride [99-111 100 mEq/L mEq/L] (03/04/16 11:27 AM) CO2 [22-31 mEq/L] 28 mEq/L (03/04/16 11:27 AM) AGAP [3-20] 6 (03/04/16 11:27 AM) BUN [10-20 mg/dL] 15 mg/dL (03/04/16 11:27 AM) Glucose Lvl [70-99 82 mg/dL mg/dL] (03/04/16 11:27 AM) Creatinine Lvl 0.87 mg/dL [0.57-1.11 mg/dL] (03/04/16 11:27 AM) eGFR [>60 mL/min] >60 mL/min 1 (03/04/16 11:27 AM) Calcium Lvl 9.1 mg/dL [8.9-10.5 mg/dL] (03/04/16 11:27 AM) Magnesium Lvl 2.0 mg/dL [1.6-2.6 mg/dL] (03/04/16 11:27 AM) 1Result Comment: Multiply eGFR results by 1.21 for race. Immunizations Vaccine Date Refusal Reason tetanus/diphth/pertuss (Tdap) adult/adol 09/24/13 influenza virus vaccine, inactivated 03/04/16 influenza virus vaccine, inactivated 03/10/15 influenza virus [...] Patient Education Author: Gray Jaramillo MD Date: Oncology Chronic Lymphocytic Leukemia Chronic lymphocytic leukemia (CLL) is a type of cancer of the bone marrow and blood cells. Bone marrow is the soft, spongy tissue inside your bone. In CLL, the bone marrow makes too many white blood cells that usually fight infection in the body (lymphocytes). CLL usually gets worse slowly and is the most common type of adult leukemia. RISK FACTORS No one knows the exact cause of CLL. There is a higher risk of CLL in people who : Are older than 50 years. Are white. Are male. Have a family history of CLL or other cancers of the lymph system. Are of [place] Anabaptist or Eastern Anabaptist descent. Have been exposed to certain chemicals, such as Agent [place] (used in the Vietnam War) or other [...] These medicines kill cells that are multiplying quickly, such as leukemia cells. Radiation. Surgery to remove the spleen. Biological therapy. This treatment boosts the ability of your own immune system to fight the leukemia cells. Bone marrow or peripheral blood stem cell transplant. This treatment allows the patient to receive very high doses of chemotherapy or radiation or both. These high doses kill the cancer cells [...] avoid contact sports or other rough activities. Take medicines only directed by your health care provider. Although [...] legs. You have pain in your belly (abdomen). You develop new bruises that are getting bigger. You have painful or more swollen lymph nodes. You develop bleeding from your gums, nose, or in your urine or stools. You are unable to stop throwing up (vomiting). You cannot keep liquids down. You feel light-headed. You have a fever. You develop a severe stiff neck or headache. SEEK IMMEDIATE MEDICAL CARE IF: You have trouble breathing or feel short of breath. You faint. This information is not intended to replace advice given to you by your health care provider. Make sure you discuss any questions you have with your health care provider. Document Released: 09/21/2009 Document Revised: 05/26/2015 Document Reviewed: [employer] Interactive Patient Education 2016 [employer] No follow up information was provided. Extracted from: Title: multiple problems Author: Gray Jaramillo MD Date: 03/04/16 Impression and Plan Diagnosis Abnormal loss of weight (ULX57-DL R63.4, Discharge, Medical). CLL (chronic lymphocytic leukemia) (MKD02-FH C91.10, Discharge, Medical). Hand cramps (TVU85-JJ R25.2, Discharge, Medical). Leg cramps (IGE02-QS R25.2, Discharge, Medical). Mild epistaxis (KLR06-MW R04.0, Discharge, Medical). Need for influenza vaccination ([id number]-GG Z23, Discharge, Medical). Plan: 1) Flu shot given. 2) Continue your same meds. 3) See me in 6 months and as needed. 4) Lab ordered today.. Orders Orders (Selected) Outpatient Orders Ordered Office Visit Level 4 Est 66699: Completed BMP: Magnesium Level: eGFR: influenza virus vaccine, inactivated: 0.5 mL, IntraMuscular, Once. Dx/Order Association Plan: Diagnosis: Abnormal loss of weight Comment: Ordered: Office Visit Level 4 Est 37837; 03/04/16 10:57:00 CDT, CLL (chronic lymphocytic leukemia) | Abnormal loss of weight | Hand cramps | Mild epistaxis | Need for influenza vaccination Diagnosis: CLL (chronic lymphocytic leukemia) Comment: Ordered: Office Visit Level 4 Est 16792; 03/04/16 10:57:00 CDT, CLL (chronic lymphocytic leukemia) | Abnormal loss of weight | Hand cramps | Mild epistaxis | Need for influenza vaccination Other status: influenza virus vaccine, inactivated; 0.5 mL, IntraMuscular, Once, First Dose: 03/04/16 10:57:00 CDT, Stop Date: 03/04/16 10: 57:00 CDT (Completed) Diagnosis: Hand cramps Comment: Ordered: Office Visit Level 4 Est 42336; 03/04/16 10:57:00 CDT, CLL (chronic lymphocytic leukemia) | Abnormal loss of weight | Hand cramps | Mild epistaxis | Need for influenza vaccination Other status: Magnesium Level; Blood, Routine Collect, 03/04/16 11 :19:00 CDT, Once, Stop date 03/04/16 11:19:00 CDT, Lab Collect, Hand cramps ( Completed) BMP; Blood, Routine Collect, 03/04/16 11:19: 00 CDT, Once, Stop date 03/04/16 11:19:00 CDT, Lab Collect, Hand cramps ( Completed) Diagnosis: Leg cramps Comment: Diagnosis: Mild epistaxis Comment: Ordered: Office Visit Level 4 Est 03578; 03/04/16 10:57:00 CDT, CLL (chronic lymphocytic leukemia) | Abnormal loss of weight | Hand cramps | Mild epistaxis | Need for influenza vaccination Diagnosis: Need for influenza vaccination Comment: Ordered: Office Visit Level 4 Est 20207; 03/04/16 10:57:00 CDT, CLL (chronic lymphocytic leukemia) | Abnormal loss of weight | Hand cramps | Mild epistaxis | Need for influenza vaccination Other status: influenza virus vaccine, inactivated; 0.5 mL, IntraMuscular, Once, First Dose: 03/04/16 10:57:00 CDT, Stop Date: 03/04/16 10: 57:00 CDT (Completed) End of Orders ."
--- OUTSIDE RECORDS SUMMARY | 2016-08-26 15:48 | XMS REPORT | Continuity of Care Document ---
Author Author [facility] Organization [facility] Address Unknown Phone Unavailable Allergies Medications Problems Procedures Results Encounters ACCT No. Visit Date/Time Discharge Status Pt. Type Provider Facility Loc./Unit Complaint [id number] 07/12/2013 15:41:00 07/12/2013 23 :59:59 CLS Outpatient [id number] 06/28/2013 15:27:00 06/28/2013 23 :59:59 CLS Outpatient [id number] 06/03/2013 11:16:00 06/03/2013 23 :59:59 CLS Outpatient
--- OUTSIDE RECORDS SUMMARY | 2016-08-26 15:48 | XMS REPORT | Continuity of Care Document ---
Author Author [facility] Organization [facility] Address Unknown Phone Unavailable Support Name Relationship Address Phone TATE WIGGINS MD Caregiver [address] [place] [address] Unavailable BRINA SCHOFIELD MD Caregiver [address] [place] [address] Unavailable ZURI VASQUEZ Next Of Kin X [place], [place] [id number] Insurance Providers Guarantor Lissy Vasquez Address [address] [address] Email DENIED/NO TO PT PORT Payer [employer] Select Plan 65 Policy Number [id number] Subscriber's Name Lissy Vasquez Relationship 18 Self Group Number [id number] Effective Date 09 Payer Medicare Policy Number [id number] Subscriber's Name Lissy Vasquez Relationship 18 Self Effective Date 03 Problems [...] Cap Oral Twice A Day 07/16/15 Hydrocodone/Acetaminophen ([place] 5-325 Tablet) 1 Each Tablet 1-2 Tab Oral Every 4-6 Hours as needed for Pain 30 Tablet 07/16/15 Hydrocodone/Acetaminophen ([place] 5-325 Tablet) 1 Each Tablet 1-2 Tab [...] Y fall 201407/17/15 8:24pm Hx Pneumococcal Vaccination Y 201307/17/15 8:24pm Hx Tetanus, Diptheria, Pertussis Yes 02/25/11 3:05pm Hx Influenza Vaccination Y fall 201407/17/15 8:24pm Hx Tetanus, Diptheria, Pertussis Yes 02/25/11 3:05pm Influenza Vaccine Hx February 2015 07/19/15 10:15am Vital Signs No known vital signs results. Results Laboratory Results Test Name Result Units Flags Reference Collection Date/Time Result Date/ Time Comments Band Neutrophils % 2.0 % 0-6 10/05/2015 10:18am 10/05/2015 11:06am Monocytes % (Manual) 1.0 % 0-9.0 10/05/2015 10:18am 10/05/2015 11:06am Band Neutrophils # 2.0 T/MM3 10/05/2015 10:18am 10/05/2015 11:06am Monocytes # (Manual) 1.0 T/MM3 H 0-0.8 10/05/2015 10:18am 10/05/2015 11: 06am Smudge Cells 3+ 07/27/2015 11:55am 07/27/2015 12:36pm White Blood Count 98.5 T/MM3 *H 4.5-11.0 11/02/2015 2:11/02/2015 2: 35pm Red Blood Count 4.14 M/MM3 4.00-5.20 11/02/2015 2:11/02/2015 2: 33pm Hemoglobin 12.4 GM/DL 12-16 11/02/2015 2:11/02/2015 2:33pm Hematocrit 38.9 % 36-46 11/02/2015 2:11/02/2015 2:33pm Mean Corpuscular Volume 94.0 UM3 80-100 11/02/2015 2:11/02/2015 2: 33pm Mean Corpuscular Hemoglobin 30.0 UUG 26-34 11/02/2015 2:2015 2:33pm Mean Corpuscular Hemoglobin Concent 31.9 GM/DL 31-37 11/02/2015 2:11/02/2015 2:33pm RDW Standard Deviation 54.8 FL H 36.9-50.2 11/02/2015 2:11/02/2015 2:33pm Platelet Count 175 T/MM3 130-400 11/02/2015 2:11/02/2015 2:33pm Mean Platelet Volume 11.3 UM3 9.4-12.4 11/02/2015 2:11/02/2015 2: 33pm Neutrophils % (Manual) 2.0 % L 33-66 11/02/2015 2:11/02/2015 2: 43pm Lymphocytes % (Manual) 98.0 % H 23-45 11/02/2015 2:11/02/2015 2: 43pm Absolute Neutrophils (Manual) 2.0 T/MM3 1.8-7.7 11/02/2015 2:11/01 2:43pm Lymphocytes # (Manual) 96.5 T/MM3 H 1-4.8 11/02/2015 2:11/02/2015 2 :43pm Red Cell Morphology Comment NORMAL 11/02/2015 2:11/02/2015 2: 43pm Icterus Index < 2 0-7 11/02/2015 2:11/02/2015 2:39pm Chemistry Specimen Hemolysis < 15 0-25 11/02/2015 2:11/02/2015 2 :39pm 0-25: Specimen Exhibited No Hemolysis. Turbidity < 20 0-20 11/02/2015 2:11/02/2015 2:39pm Sodium Level 138 MEQ/L 134-144 11/02/2015 2:11/02/2015 2:39pm Potassium Level 3.9 MEQ/L 3.6-5 11/02/2015 2:11/02/2015 2:39pm Chloride Level 104 MEQ/L 98-107 11/02/2015 2:11/02/2015 2:39pm Carbon Dioxide Level 26 MEQ/L 22-30 11/02/2015 2:11/02/2015 2: 39pm Anion Gap 8 MEQ/L 5-15 11/02/2015 2:11/02/2015 2:39pm Blood Urea Nitrogen 17.0 MG/DL 7-17 11/02/2015 2:11/02/2015 2: 39pm Creatinine 0.8 MG/DL 0.7-1.2 11/02/2015 2:11/02/2015 2:39pm BUN/Creatinine Ratio 21 RATIO 6-26 11/02/2015 2:11/02/2015 2:39pm Glomerular Filtration Rate Calc 70 11/02/2015 2:11/02/2015 2: 39pm Glucose Level 126 MG/DL H 65-110 11/02/2015 2:11/02/2015 2:39pm Calculated Osmolality 270 MOSM/KG 261-280 11/02/2015 2:11/02/2015 2:39pm Calcium Level 8.8 MG/DL 8.4-10.2 11/02/2015 2:11/02/2015 2:39pm Total Bilirubin 0.40 MG/DL 0.20-1.30 11/02/2015 2:11/02/2015 2: 39pm Alkaline Phosphatase 56 U/L 38-126 11/02/2015 2:11/02/2015 2:39pm Total Protein 5.8 G/DL L 6.3-8.2 11/02/2015 2:21pm 11/02/2015 2:39pm Albumin 3.5 G/DL 3.5-5.0 11/02/2015 2:21pm 11/02/2015 2:39pm Globulin 2.3 G/DL L 2.4-3.6 11/02/2015 2:21pm 11/02/2015 2:39pm Albumin/Globulin Ratio 1.5 RATIO 1.1-2.2 11/02/2015 2:21pm 11/02/2015 2 :39pm Aspartate Amino Transf (AST/SGOT) 23 U/L 14-36 11/02/2015 2:21pm 2015 2:39pm Alanine Aminotransferase (ALT/SGPT) 20 U/L 9-52 11/02/2015 2:21pm 11/01 2:39pm Procedures Procedure Status Date Provider(s) ROUTINE VENIPUNCTURE Completed 11/02/15 COMPREHEN METABOLIC PANEL Completed 11/02/15 BL SMEAR W/DIFF WBC COUNT Completed 11/02/15 COMPLETE CBC AUTOMATED Completed 11/02/15 Encounters Encounter Location Arrival/Admit Date Discharge/Depart Date Attending Provider Registered Clinic [facility] 11/02/15 2:07pm TATE WIGGINS MD Discharged Recurring [facility] 10/05/15 10:25am 11/16/15 7:46pm TATE WIGGINS MD
--- OUTSIDE RECORDS SUMMARY | 2016-08-26 15:48 | XMS REPORT | Referral Summary ---
Author Author [facility] Organization [facility] Address Unknown Phone Unavailable Care Team Providers Care Pet Handler Name Role Phone Maragrita Jaramillo Primary Care Physician [phone] Encounter Date(s): 12/08/14 - 12/08/14 [facility] [address] [place], [place] [address] Discharge Diagnosis: Cervicalgia Discharge Diagnosis: Spinal stenosis in cervical region (disorder) Discharge Diagnosis: Degenerative disc disease, cervical Discharge Diagnosis: Carpal tunnel syndrome Discharge Disposition: 01-Home or Self Care Attending Physician: Leroy Zeng Admitting Physician: Leroy Zeng Vital Signs Most recent to 1 oldest [Reference Range]: Temperature Oral 36.2 degC [35.8-37.3 degC] (12/08/14 1:27 PM) Blood Pressure 112/64 mmHg [90-140/60-90 mmHg] (12/08/14 1:27 PM) Problem List Condition Effective Dates Status [...] 0 Refill(s) Start Date: 11/10/13 Status: Ordered [place] 5 mg-325 mg oral tablet 1-2 tabs, [...] Office Visit Note Author: Leroy Zeng Date: 12/08/14 Assessment/Plan Carpal tunnel syndrome Cervicalgia Degenerative disc disease, cervical Spinal stenosis in cervical region (disorder) I discussed this patient's care with Dr. Snider. We did review her previous cervical spine MRI noting multiple levels of disc bulges spondylitic changes disc herniations some central and foraminal stenosis. She also has right carpal tunnel syndrome. She isnot having any arm pain but had an episode of pain burning and tingling into her right hand. It seem to have resolved though. Her last carpal tunnel injection was in September and he really would like to wait at least 3 months from her last one. Again her symptoms seem to resolved so we will defer any interventions at this time. She'll call back if her symptoms worsen. We may consider scheduling her for injections based on her symptoms in the future. She wants to avoid any surgical alternatives. She continues following with Dr. Santos. Follow-up here otherwise as needed. She voiced understanding and agrees to the above plans. The above was in discussion with Dr. Snider.
--- OUTSIDE RECORDS SUMMARY | 2016-08-26 15:48 | XMS REPORT | Referral Summary ---
Author Author [facility] Organization [facility] Address Unknown Phone Unavailable Care Team Providers Care Appellate Court Judge Name Role Phone Margarita Jaramillo Primary Care Physician [phone] Encounter VC Date(s): 12/08/15 - 12/08/15 [facility], [address] [place] [address] Discharge Disposition: 01-Home or Self Care Attending Physician: Gray Jaramillo MD Admitting Physician: Gray Jaramillo MD Vital Signs Most recent to 1 oldest [Reference Range]: Temperature Tympanic 36.9 degC [36.6-38.1 degC] (12/08/15 2:07 PM) Peripheral Pulse 64 bpm Rate [60-100 bpm] (12/08/15 2:07 PM) Blood Pressure 136/68 mmHg [90-140/60-90 mmHg] (12/08/15 2:07 PM) Problem List Condition Effective Dates Status [...] 0 Refill(s) Start Date: 11/10/13 Status: Ordered Cortisporin otic solution 4 drops, Ear-Right, QID, X 10 days, # 10 mL, 0 Refill(s), Pharmacy: [facility] #[id number] Start Date: 12/08/15 Stop Date: 12/18/15 Status: Ordered ibrutinib 140 mg oral capsule 420 mg 3 caps, Oral, Daily, 0 Refill(s) Start Date: 09/11/15 Status: Ordered Results Hematology Most recent to 1 oldest [Reference Range]: WBC [5.0-10.0 66.6 10*3/uL 10*3/uL] *HHI* (12/08/15 2:29 PM) RBC [3.70-5.20] 4.05 (12/08/15 2:29 PM) Hgb [12.0-16.0 12.3 gm/dL gm/dL] (12/08/15 2:29 PM) Hct [37.0-47.0 %] 37.8 % (12/08/15 2:29 PM) MCV [80.0-96.0 fL] 93.3 fL (12/08/15 2:29 PM) MCH [26.0-34.0 pg] 30.4 pg (12/08/15 2:29 PM) MCHC [32.0-36.0 32.5 gm/dL gm/dL] (12/08/15 2:29 PM) RDW [0.0-14.5 %] 15.3 % *HI* (12/08/15 2:29 PM) Platelet [150-400 159 10*3/uL 10*3/uL] (12/08/15 2:29 PM) MPV [8.8-14.8 fL] 10.8 fL (12/08/15 2:29 PM) Neutrophils [50-70 1 % 1 %] *LOW* (12/08/15 2:29 PM) Band Man [0-6 %] 2 % (12/08/15 2:29 PM) Lymphocytes [20-40 96 % 2 %] *HI* (12/08/15 2:29 PM) Monocytes [4-8 %] 1 % 3 *LOW* (12/08/15 2:29 PM) Eosinophils [0-6 %] 0 % (12/08/15 2:29 PM) Basophils [0-2 %] 0 % (12/08/15 2:29 PM) Neutro Absolute 2.00 10*3 4 [2.50-7.00 10*3] *LOW* (12/08/15 2:29 PM) Lymph Absolute 63.94 10*3 5 [1.00-4.00 10*3] *HI* (12/08/15 2:29 PM) Kane Absolute 0.67 10*3 6 [0.20-0.80 10*3] *HI* (12/08/15 2:29 PM) Eos Absolute 0.08 10*3 [0.00-0.60 10*3] (12/08/15 2:29 PM) Baso Absolute 0.04 [0.00-0.30] (12/08/15 2:29 PM) Polychrom Occasional *ABN* (12/08/15 2:29 PM) 1Result Comment: Corrected result; previously reported as 4 on 12/08/15 at 14: 34 by PSTUC 2Result Comment: Corrected result; previously reported as 94 on 12/08/15 at 14: 34 by PSTUC 3Result Comment: Corrected result; previously reported as 2 on 12/08/15 at 14: 34 by PSTUC 4Result Comment: Corrected result; previously reported as 2.83 on 12/08/15 at 14 :34 by PSTUC 5Result Comment: Corrected result; previously reported as 62.50 on 12/08/15 at 14:34 by PSTUC 6Result Comment: Corrected result; previously reported as 1.16 on 12/08/15 at 14 :34 by PSTUC Chemistry Most recent to 1 oldest [Reference Range]: Sodium Venous 137 mmol/L [136-145 mmol/L] (12/08/15 2:29 PM) Potassium Venous 4.2 mmol/L 1 [3.5-5.1 mmol/L] (12/08/15 2:29 PM) Calcium Ionized 1.15 mmol/L Venous [1.10-1.30 (12/08/15 2:29 PM) mmol/L] Total CO2 Venous 26 mmol/L [24-29 mmol/L] (12/08/15 2:29 PM) Glucose Venous 94 mg/dL [70-100 mg/dL] (12/08/15 2:29 PM) BUN Venous [8-26] 15 (12/08/15 2:29 PM) Creatinine Venous 1.0 mg/dL [0.6-1.2 mg/dL] (12/08/15 2:29 PM) Venous CL [98-109 98 mmol/L mmol/L] (12/08/15 2:29 PM) 1Result Comment: This test was performed on a whole blood specimen. The presence or absence of hemolysis cannot be assessed. Hemolysis can falsely elevate potassium levels. Normals are for venous specimens only. Immunizations Vaccine Date Refusal Reason tetanus/diphth/pertuss (Tdap) [...] Patient Education Author: Gray Jaramillo MD Date: 12/07 Oncology Chronic Lymphocytic Leukemia Chronic lymphocytic leukemia [...] cancers of the lymph system. Are of German Orthodox or Eastern Orthodox descent. Have been exposed to certain chemicals, such as Agent Valley (used in the Vietnam War) or other [...] Released: 09/21/2009 Document Revised: 05/26/2015 Document Reviewed: [employer] Patient Information 2016 [employer]. No follow up information was provided. Extracted from: Title: bleeding, right ear Author: Gray Jaramillo MD Date: 12/08/15 Impression and Plan Diagnosis Right otitis externa (JBB20-GE H60.511, Working, Medical). Blood clot of ear (YAH23-HD H60.321, Working, Medical). Hand cramps (BGQ27-HW R25.2, Working, Medical). CLL (chronic lymphoid leukemia) with failed remission (ZKO13-QB C91.10, Working , Medical). Mild epistaxis (AXQ14-VQ R04.0, Working, Medical). Plan: 1) Lab checked today, which is stable, except for high WBC count. 2) Rest at home. 3) Use the Cortisporin ear drops as directed. 4) Follow your oncologist's recommendations about chemotherapy. 5) See me in 3 months and as needed.. Orders Orders (Selected) Outpatient Orders Ordered Office Visit Level 4 Est 93580: Completed CBC w/ Differential: Metabolic Panel i-STAT: Prescriptions Prescribed Cortisporin otic solution: 4 drops, Ear-Right, QID, for 10 days, 10 mL, 0 Refill (s). Dx/Order Association Plan: Diagnosis: Blood clot of ear Comment: Modified: Office Visit Level 4 Est 40902; 12/08/15 14:52:00 CDT, Right otitis externa | Blood clot of ear | CLL (chronic lymphoid leukemia) with failed remission | Hand cramps | Mild epistaxis Other status: CBC w/ Differential; Blood, Stat Collect, 12/08/15 14:20:00 CDT, Once, Stop date 12/08/15 14:20:00 CDT, Lab Collect, Blood clot of ear | CLL (chronic lymphoid leukemia) with failed remission (Completed) Diagnosis: CLL (chronic lymphoid leukemia) with failed remission Comment: Modified: Office Visit Level 4 Est [id number]; 12/08/15 14:52:00 CDT, Right otitis externa | Blood clot of ear | CLL (chronic lymphoid leukemia) with failed remission | Hand cramps | Mild epistaxis Other status: CBC w/ Differential; Blood, Stat Collect, 12/08/15 14:20:00 CDT, Once, Stop date 12/08/15 14:20:00 CDT, Lab Collect, Blood clot of ear | CLL (chronic lymphoid leukemia) with failed remission (Completed) Metabolic Panel i-STAT; Blood, Stat Collect , 12/08/15 14:20:00 CDT, Once, Stop date 12/08/15 14:20:00 CDT, Lab Collect, Hand cramps | CLL (chronic lymphoid leukemia) with failed remission (Completed) Diagnosis: Hand cramps Comment: Modified: Office Visit Level 4 Est [id number]; 12/08/15 14:52:00 CDT, Right otitis externa | Blood clot of ear | CLL (chronic lymphoid leukemia) with failed remission | Hand cramps | Mild epistaxis Other status: Metabolic Panel i-STAT; Blood, Stat Collect, 14:20:00 CDT, Once, Stop date 12/08/15 14:20:00 CDT, Lab Collect, Hand cramps | CLL (chronic lymphoid leukemia) with failed remission (Completed) Diagnosis: Mild epistaxis Comment: Modified: Office Visit Level 4 Est [id number]; 12/08/15 14:52:00 CDT, Right otitis externa | Blood clot of ear | CLL (chronic lymphoid leukemia) with failed remission | Hand cramps | Mild epistaxis Diagnosis: Right otitis externa Comment: Modified: Office Visit Level 4 Est [id number]; 12/08/15 14:52:00 CDT, Right otitis externa | Blood clot of ear | CLL (chronic lymphoid leukemia) with failed remission | Hand cramps | Mild epistaxis Additional Orders: Comment: Ordered: Cortisporin otic solution,4 drops, Ear-Right, QID, X 10 days, # 10 mL, 0 Refill(s), Pharmacy: [facility] #[id number] End of Orders ."
--- OUTSIDE RECORDS SUMMARY | 2016-08-26 15:48 | XMS REPORT | Referral Summary ---
Author Author [facility] Organization [facility] Address Unknown Phone Unavailable Care Team Providers Care Continuous Improvement Coordinator Name Role Phone Margarita Jaramillo Primary Care Physician [phone] Encounter Date(s): 10/11/14 - 10/11/14 [facility] [address], [place] [address] Discharge Diagnosis: Hand pain Discharge Diagnosis: Carpal tunnel syndrome, right Discharge Disposition: 01-Home or Self Care Attending Physician: Shahid Snider MD Admitting Physician: Shahid Snider MD Vital Signs Most recent to 1 oldest [Reference Range]: Temperature Oral 36.9 degC [35.8-37.3 degC] (10/11/14 3:20 PM) Blood Pressure 119/73 mmHg [90-140/60-90 mmHg] (10/11/14 3:20 PM) Problem List Condition Effective Dates Status [...] 0 Refill(s) Start Date: 11/10/13 Status: Ordered [place] 5 mg-325 mg oral tablet 1-2 tabs, Oral, q6hr, as needed for pain, 0 Refill(s) Start Date: 04/04/15 Status: Ordered traMADol 50 mg oral tablet 50 mg 1 tabs, Oral, q6hr, Fax: Jluiana Washington, # 20 tabs, 0 Refill(s) Start [...] Procedures Procedure Date Related Diagnosis Body Site Injection, therapeutic (eg, local anesthetic, 10/11/14 corticosteroid), carpal tunnel Right C5-6/C6-7 Transforaminal 09/27/14 Right Carpal Tunnel [...]
--- OUTSIDE RECORDS SUMMARY | 2016-08-26 15:48 | XMS REPORT | Referral Summary ---
Author Organization Unknown Address Unknown Phone Unavailable Care Team Providers Care Telesales Agent Name Role Phone Margarita Jaramillo Primary Care Physician [phone] Encounter Date(s): 06/07/14 - 06/07/14 [facility], Laith Rowell [address] [place], [place] [address] Discharge Diagnosis: Lung mass Discharge Disposition: Home or Self Care Attending Physician: José Almanzar MD Admitting Physician: José Almanzar MD Referring Physician: Gray Jaramillo MD Vital Signs No [...]
--- OUTSIDE RECORDS SUMMARY | 2016-08-26 15:48 | XMS REPORT | Referral Summary ---
Author Author [facility] Organization [facility] Address Unknown Phone Unavailable Care Team Providers Care Car Spotter Name Role Phone Margarita Jaramillo Primary Care Physician [phone] Encounter VC Date(s): 08/02/15 - 08/02/15 [facility] [address] [place] [address] [address] [place] [address]- [place] Discharge Diagnosis: Post-operative state Discharge Disposition: -Home or Self Care Attending Physician: Renate Quinn APRN Admitting Physician: Renate Quinn APRN Referring Physician: Gray Jaramillo MD Vital Signs Most recent to 1 oldest [Reference Range]: Temperature Tympanic 36.8 degC [36.6-38.1 degC] (08/02/15 10:52 AM) Problem List Condition Effective Dates Status [...] Date: 08/02/15 Stop Date: 08/09/15 Status: Ordered [place] 5 mg-325 mg oral tablet 1-2 tabs, [...] Extracted from: Title: Ambulatory Patient Education Author: Renate Quinn BUSINESS ECONOMIST Date : 08/02/15 Family Medicine Preventing Constipation After Surgery Constipation is when a person has fewer than 3 bowel movements a week; has difficulty having a bowel movement; or has stools that are dry, hard, or larger than normal. Many things can make constipation likely after surgery. They include: Medicines, especially numbing medicines (anesthetics) and very strong pain medicines called narcotics. Feeling stressed because of the surgery. Eating different foods than normal. Being less active. Symptoms of constipation include: Having fewer than 3 bowel movements a week. Straining to have a bowel movement. Having hard, dry, or [id number] stools. Feeling full or bloated. Having pain in the lower abdomen. Not feeling relief after having a bowel movement. HOME CARE INSTRUCTIONS Diet Eat foods that have a lot of fiber. These include fruits, vegetables, whole grains, and beans. Limit foods high in fat and processed sugars. These include vietnamese fries, hamburgers, cookies, and candy. Take a fiber supplement as directed. If you are not taking a fiber supplement and think that you are not getting enough fiber from foods, talk to your health care provider about adding a fiber supplement to your diet. Drink clear fluids, especially water. Avoid drinking alcohol, caffeine, and soda. These can make constipation worse. Drink enough fluids to keep your urine clear or pale yellow. Activity After surgery, return to your normal activities slowly or when your health care provider says it is okay. Start walking as soon as you can. Try to go a little farther each day. Once your health care provider approves, do some sort of regular exercise. This helps prevent constipation. Bowel Movements Go to the restroom when you have the urge to go. Do not hold it in. Try drinking something hot to get a bowel movement started. Keep track of how often you use the restroom. If you miss 23 bowel movements, talk to your health care provider about medicines that prevent constipation. Your health care provider may suggest a stool softener, laxative, or fiber supplement. Only take [id number] or prescription medicines as directed by your health care provider. Do not take other medicines without talking to your health care provider first. If you become constipated and take a medicine to make you have a bowel movement, the problem may get worse. Other kinds of medicine can also make the problem worse. SEEK MEDICAL CARE IF: You used stool softeners or laxatives and still have not had a bowel movement within 2448 hours after using them. You have not had a bowel movement in 3 days. SEEK IMMEDIATE MEDICAL CARE IF: Your constipation lasts for more than 4 days or gets worse. You have bright red blood in your stool. You have abdominal or rectal pain. You have very bad cramping. You have thin, pencil-like stools. You have unexplained weight loss. You have a fever or persistent symptoms for more than 23 days. You have a fever and your symptoms suddenly get worse. This information is not intended to replace advice given to you by your health care provider. Make sure you discuss any questions you have with your health care provider. Document Released: 08/30/2013 Document Revised: 09/19/2014 Document Reviewed: [facility] Patient Information 2015 [employer]. Preventive Medicine Venous Thromboembolism, Prevention A venous thromboembolism is a blood clot that forms in a vein. A blood clot in a deep vein is called a deep venous thrombosis (DVT). A blood clot in the lungs is called a pulmonary embolism (PE). Blood clots are dangerous and can cause . Blood clots can form in the: Lungs. Legs. Arms. CAUSES A blood clot can form in a vein from different conditions. A blood clot can develop due to: Blood flow within a vein that is sluggish or very slow. Medical conditions that make the blood clot easily. Vein damage. RISK FACTORS Risk factors can increase your risk of developing a blood clot. Risk factors can include: Smoking. Obesity. Age. Immobility or sedentary lifestyle. Sitting or standing for long periods of time. Chronic or long-term bedrest. Medical or past history of blood clots. Family history of blood clots. Hip, leg, or pelvis injury or trauma. Major surgery, especially surgery on the hip, knee, or abdomen. and childbirth. control pills and hormone replacement therapy. Medical conditions such as Peripheral vascular disease (PVD). Diabetes. Cancer. SYMPTOMS Symptoms of VTE can depend on where the clot is located and if the clot breaks off and travels to another organ. Sometimes, there may be no symptoms. DVT symptoms can include: Swelling of the leg or arm, especially on one side. Warmth and redness of the leg or arm, especially on one side. Pain in an arm or leg. Leg pain may be more noticeable or worse when standing or walking. PE symptoms can include: Shortness of breath. Coughing. Coughing up blood or blood-tinged mucus (hemoptysis). Chest pain or chest pain with deep breaths (pleuritic chest pain). Apprehension, anxiety, or a feeling of impending doom. Rapid heartbeat. PREVENTION Exercise regularly. Take a brisk 30 minute walk every day. Staying active and moving around can help prevent blood clots. Avoid sitting or lying in bed for long periods of time. Change your position often, especially during a long trip. Women, especially those over the age of 35, should consider the risks and benefits of taking estrogen medicines. This includes control pills and hormone replacement therapy. Do not smoke, especially if you take estrogen medicines. If you smoke, talk to your caregiver on how to quit. Eat plenty of fruits and vegetables. Ask your caregiver or dietitian if there are foods you should avoid. Maintain a weight as suggested by your caregiver. Wear loose-fitting clothing. Avoid constrictive or tight clothing around your legs or waist. Try not to bump or injure your legs. Avoid crossing your legs when you are sitting. Do not use pillows under your knees unless told by your caregiver. Take all medicines that your caregiver prescribes you. Wear special stockings (compression stockings or SHAKIRA hose) if your caregiver prescribes them. Wearing compression stockings (support hose) can make the leg veins more narrow. This increases blood flow in the legs and can help prevent blood clots. It is important to wear compression stockings correctly. Do not let them bunch up when you are wearing them. TRAVEL Long distance travel can increase the risk of a blood clot. To prevent a blood clot when traveling: You should exercise your legs by walking or by pumping your muscles every hour. To help prevent poor circulation on long trips, stand, stretch, and walk up and down the aisle of your airplane, train, or bus as often as possible to get the blood moving. Do squats if you are able. If you are unable to do squats, raise your foot on the balls of your feet and tighten your lower leg muscles (particularly the calve muscles) while seated. Pointing (flexing and extending) your toes while tightening your calves while seated are also good exercises to do every hour during long trips. They help increase blood flow and reduce risk of DVT. Stay well hydrated. Drink water regularly when traveling, especially when you are sitting or immobile for long periods of time. Use of drugs to prevent DVT during routine travel is not generally recommended. Before taking any drugs to reduce risk of DVT, consult your caregiver. SURGERY AND HOSPITALIZATION People who are at high risk for a blood clot may be given a blood thinning medicine (anticoagulant) when they are hospitalized even if they are not going to have surgery. A long trip prior to surgery can increase the risk of a clot for patients undergoing hip and knee replacements. Talk to your caregiver about travel plans before your surgery. After hip or knee surgery, your caregiver may give you anticoagulants to help prevent blood clots. Anticoagulants may be given to people at high risk of developing thromboembolism, before, during, or sometimes after surgery, including people with clotting disorders or with a history of past thromboembolism. TRAVEL AFTER SURGERY In orthopedic surgery, the cutting of bones prompts the body to increase clotting factors in the blood. Due to the size of the bones involved in hip and knee replacements, there is a higher risk of blood clotting than other orthopedic surgeries. There is a risk of clotting for up to 46 weeks after surgery. Flying or traveling long distances can increase your risk of a clot. As a result, those who travel long distances may need additional preventive measures after their procedure. Drink only non-alcoholic beverages during your flight, train, or car travel. Alcohol can dehydrate you and increase your risk of getting blood clots. SEEK IMMEDIATE MEDICAL CARE IF: You develop chest pain. You develop severe shortness of breath. You have breathing problems after traveling. You develop swelling or pain in the leg. You begin to cough up bloody mucus or phlegm (sputum). You feel dizzy or faint. This information is not intended to replace advice given to you by your health care provider. Make sure you discuss any questions you have with your health care provider. Document Released: 04/23/2010 Document Revised: 01/27/2013 Document Reviewed: [employer] Patient Information 2015 [employer]. No follow up information was provided. Extracted from: Title: Office Visit Note Author: Renate Quinn BUSINESS ECONOMIST Date: 08/02/15 Assessment/Plan 1.Post-operative state I would suggest trying a probiotic, just over-the- counterfrom the pharmacy. Continue with the metronidazole. Since she did not take and the Cipro thisfar I would not necessarily start now. Oracio are removed without difficulty and antibiotic ointment applied. Continue to use common sense. If an activity is causing pain, that is a sign that you need to "back off" and wait a little longer before lifting something that heavy or doing that activity. Do not hesitate to contact us with any surgical concerns. Continue with your general medical care through your primary care physician. Ordered: Postoperative Est [id number]
--- OUTSIDE RECORDS SUMMARY | 2016-08-26 15:48 | XMS REPORT | Continuity of Care Document ---
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 Influenza Vaccine - Sinusitis, frontal, [...] Oral route twice a day - Active Kevin 7.5 mg-325 mg tablet take 1 tablet [...] Height Weight Pulse Rate Blood Pressure Temperature /15:46:00 60.00 in 120.00 lbs 110/68 mm[Hg] 97.9 F Procedures Procedure Date Unknown Encounters Encounter Location Date Patient Visit [facility] FC Pain Patient Visit [facility] New FM Patient Visit [facility] FM Patient Visit [facility] Patient Visit [facility] Patient [facility] Patient [facility] Patient [facility] Patient [facility] FM Patient Visit [facility] New FM Patient Visit [facility] FC Pain Patient Visit Conversion Patient Visit [facility] FC Pain Patient Visit [facility] FM Patient Visit [facility] Phys & Rehab Patient Visit [facility] FM Patient Visit [facility] New FM Advance Directives Directive Effective Date Unknown
--- OUTSIDE RECORDS SUMMARY | 2016-08-26 15:48 | XMS REPORT | Referral Summary ---
Author Author [facility] Organization [facility] Address Unknown Phone Unavailable Care Team Providers Care Back Tender Name Role Phone Margarita Jaramillo Primary Care Physician [phone] Encounter Date(s): 09/27/14 - 09/27/14 [facility] [address] [place], [place] [address] Discharge Diagnosis: Cervical pain Discharge Diagnosis: Cervical radiculopathy Discharge Diagnosis: Spinal stenosis in cervical region (disorder) Discharge Disposition: 01-Home or Self Care Attending Physician: Shahid Snider MD Admitting Physician: Shahid Snider MD Vital Signs Most recent to 1 oldest [Reference Range]: Peripheral Pulse 68 bpm Rate [60-100 bpm] (09/27/14 1:50 PM) Respiratory Rate 18 br/min [14-20 br/min] (09/27/14 1:50 PM) Blood Pressure 128/75 mmHg [90-140/60-90 mmHg] (09/27/14 1:50 PM) SpO2 99 % (09/27/14 1:50 PM) Problem List Condition Effective Dates Status [...] 0 Refill(s) Start Date: 11/10/13 Status: Ordered Granton 5 mg-325 mg oral tablet 1-2 tabs, [...] Procedures Procedure Date Related Diagnosis Body Site Injection(s), anesthetic agent and/or 09/27/14 steroid, transforaminal epidural, with imaging guidance (fluoroscopy or CT); cervical or thoracic, each additional level (List separately in addition to code for primary procedure) Injection(s), anesthetic agent and/or 09/27/14 steroid, transforaminal epidural, with imaging guidance (fluoroscopy or CT); cervical or thoracic, single level Right C5-6/C6-7 Transforaminal 09/27/14 Right Carpal Tunnel Injection Under US 04/25/14 Right C5-6/C6-7 Transforaminal 04/07/14 Procedure/Right C5-6/C6-7 Transforaminal 06/03/13 Procedure/Right C5-6/C6-7 Transforaminal 06/11/12 Hospital admission/chemotherapy 2010 Removal/lymph node 2011 Sigmoidoscopy 2008 Arthroscopy of knee/left 2002 Fulton's neuroma/excision x 3 2000 Arthroscopy of knee/left 1997 Appendectomy 1988 Repair/diaphragm 1988 Cataract1 Cervical polypectomy 1bilateral IOLs Social History Social History Type Response Smoking Status Never smoker Assessment and Plan Future Scheduled TestsReferral* Return to Clinic 06/07/14 5:31 PM Referrals to Other Providers Referred by: José Almanzar MD
--- OUTSIDE RECORDS SUMMARY | 2016-08-26 15:48 | XMS REPORT | Referral Summary ---
Author Author [facility] Organization [facility] Address Unknown Phone Unavailable Care Team Providers Care Bottom Polisher Name Role Phone Margarita Jaramillo Primary Care Physician [phone] Encounter VC Date(s): 03/15/15 - 03/15/15 [facility] [address] [place] [address]- Discharge Disposition: 01-Home or Self Care Attending [...] Hyal Cast [0-3] 1-3 (03/15/15 1:40 PM) Microbiology Reports TEST: Urine Culture STATUS: Auth (Verified) BODY SITE: SOURCE: Urine COLLECTED DATE/TIME: 03/15/15 1:40 PM Urine Culture Enterococcus faecalis >100,000 cfu/ml ORGANISM:Enterococcus faecalis Immunizations Vaccine Date Refusal Reason tetanus/diphth/pertuss (Tdap) [...] Released: 02/11/2009 Document Revised: 09/19/2014 Document Reviewed: [facility]. This information is not intended to [...] 07/27/2012 Document Reviewed: [employer] Patient Information 2015 [employer]. This information is not intended to replace advice given to you by your health care provider. Make sure you discuss any questions you have with your health care provider. No follow up information was provided. Extracted from: Title: Female Physical Author: Gray Jaramillo MD Date: 03/15/15 Impression and Plan Diagnosis Axillary lymphadenopathy (RUF73-QT R59.0, Working, Medical). CLL (chronic lymphocytic leukemia) (JZY38-UQ C91.10, Working, Medical). Carpal tunnel syndrome, right (UAR97-JQ G56.01, Working, Medical). Osteopenia (AIE36-TY M85.852, Working, Medical). Overflow stress urinary incontinence in female (LDU12-ZA N39.3, Working, Medical ). Dry eyes (BIB33-UV H04.123, Working, Medical). Plan: 1) Get your Hepatitis A series of immunizations. 2) Fasting lab today. 3) Schedule a bone density test. 4) Continue your current meds. 5) See me in 6 months and as needed. 6) Continue your healthy diet and daily walking exercise. . Orders Orders (Selected) Outpatient Orders Ordered Office Visit Level 5 Est 68952: Future (On Hold) CMP: DEXA Axial Skeleton, BD Bone Density: Occult Blood X 3, Stool: Routine Urinalysis: TSH 3rd Generation: . Dx/Order Association Plan: Diagnosis: Axillary lymphadenopathy Comment: Ordered: Office Visit Level 5 Est [id number]; 03/15/15 9:28:00 CDT, CLL (chronic lymphocytic leukemia) | Axillary lymphadenopathy | Osteopenia | Overflow stress urinary incontinence in female Diagnosis: CLL (chronic lymphocytic leukemia) Comment: Ordered: Office Visit Level 5 Est [id number]; 03/15/15 9:28:00 CDT, CLL (chronic lymphocytic leukemia) | Axillary lymphadenopathy | Osteopenia | Overflow stress urinary incontinence in female Diagnosis: Carpal tunnel syndrome, right Comment: Diagnosis: Dry eyes Comment: Diagnosis: Osteopenia Comment: Ordered: Office Visit Level 5 Est 19005; 03/15/15 9:28:00 CDT, CLL (chronic lymphocytic leukemia) | Axillary lymphadenopathy | Osteopenia | Overflow stress urinary incontinence in female Diagnosis: Overflow stress urinary incontinence in female Comment: Ordered: Office Visit Level 5 Est [id number]; 03/15/15 9:28:00 CDT, CLL (chronic lymphocytic leukemia) | Axillary lymphadenopathy | Osteopenia | Overflow stress urinary incontinence in female Diagnosis: Overflow stress urinary incontinence in female Comment: Diagnosis: Fatigue Comment: Diagnosis: Osteopenia Comment: Diagnosis: Colon cancer screening Comment: Diagnosis: Axillary lymphadenopathy Comment: Diagnosis: Fatigue Comment: End of Orders .
--- OUTSIDE RECORDS SUMMARY | 2016-08-26 15:49 | XMS REPORT | Continuity of Care Document ---
Author Author [facility] Organization [facility] Address Unknown Phone Unavailable Support Name Relationship Address Phone TATE WIGGINS MD Caregiver [address] [place] [address] Unavailable BRUNO MEDICAL Caregiver Unknown Unavailable BRINA SCHOFIELD MD Caregiver [address] [place] [address] Unavailable ZURI BEDOLLA Next Of Kin [place], [place] [address] Insurance Providers Guarantor Lissy Bedolla Address [address] [address] Email DENIED/NO TO PT PORT Payer [email or web address] Select Plan 65 Policy Number [id number] Subscriber's Name Lissy Bedolla Relationship 18 Self Group Number [id number] Effective Date 09 Payer Medicare Policy Number [id number] Subscriber's Name Lissy Bedolla Relationship 18 Self [...] Cap Oral Twice A Day 07/16/15 Hydrocodone/Acetaminophen (Barber[place] 5-325 Tablet) 1 Each Tablet 1-2 Tab Oral Every 4-6 Hours as needed for Pain 30 Tablet 07/16/15 Hydrocodone/Acetaminophen ([place] 5-325 Tablet) 1 Each Tablet 1-2 Tab [...] # 1.1 T/MM3 01/25/2016 8:35am 01/25/2016 9:20am White Blood Count 37.9 T/MM3 *H 4.5-11.0 03/21/2016 9:10am 03/21/2016 9: 36am Red Blood Count 4.18 M/MM3 4.00-5.20 03/21/2016 9:03/21/2016 9: 36am Hemoglobin 13.0 GM/DL 12-16 03/21/2016 9:03/21/2016 9:36am Hematocrit 39.4 % 36-46 03/21/2016 9:03/21/2016 9:36am Mean Corpuscular Volume 94.3 UM3 80-100 03/21/2016 9:03/21/2016 9: 36am Mean Corpuscular Hemoglobin 31.1 UUG 26-34 03/21/2016 9:2015 9:36am Mean Corpuscular Hemoglobin Concent 33.0 GM/DL 31-37 03/21/2016 9:03/21/2016 9:36am RDW Standard Deviation 50.1 FL 36.9-50.2 03/21/2016 9:03/21/2016 9 :36am Platelet Count 153 T/MM3 130-400 03/21/2016 9:03/21/2016 9:36am Mean Platelet Volume 11.7 UM3 9.4-12.4 03/21/2016 9:03/21/2016 9: 36am Neutrophils % (Manual) 4.0 % L 33-66 03/21/2016 9:03/21/2016 10: 13am Lymphocytes % (Manual) 93.0 % H 23-45 03/21/2016 9:03/21/2016 10: 13am Monocytes % (Manual) 1.0 % 0-9.0 03/21/2016 9:03/21/2016 10:13am Reactive Lymphocytes % 2.0 % H 0-0 03/21/2016 9:03/21/2016 10:13am Absolute Neutrophils (Manual) 1.5 T/MM3 L 1.8-7.7 03/21/2016 9:07/2015 10:13am Lymphocytes # (Manual) 35.2 T/MM3 H 1-4.8 03/21/2016 9:03/21/2016 10:13am Monocytes # (Manual) 0.4 T/MM3 0-0.8 03/21/2016 9:03/21/2016 10: 13am Reactive Lymphocytes # 0.8 T/MM3 H 0-0 03/21/2016 9:03/21/2016 10: 13am Smudge Cells 2+ 03/21/2016 9:03/21/2016 10:13am Red Cell Morphology Comment NORMAL 03/21/2016 9:03/21/2016 10: 13am Icterus Index < 2 0-7 03/21/2016 9:03/21/2016 9:34am Chemistry Specimen Hemolysis < 15 0-25 03/21/2016 9:03/21/2016 9 :34am 0-25: Specimen Exhibited No Hemolysis. Turbidity < 20 0-20 03/21/2016 9:03/21/2016 9:34am Sodium Level 135 MEQ/L 134-144 03/21/2016 9:03/21/2016 9:34am Potassium Level 4.1 MEQ/L 3.6-5 03/21/2016 9:03/21/2016 9:34am Chloride Level 102 MEQ/L 98-107 03/21/2016 9:03/21/2016 9:34am Carbon Dioxide Level 27 MEQ/L 22-30 03/21/2016 9:03/21/2016 9: 34am Anion Gap 6 MEQ/L 5-15 03/21/2016 9:03/21/2016 9:34am Blood Urea Nitrogen 12.0 MG/DL 7-17 03/21/2016 9:03/21/2016 9: 34am Creatinine 0.8 MG/DL 0.7-1.2 03/21/2016 9:03/21/2016 9:34am BUN/Creatinine Ratio 15 RATIO 6-26 03/21/2016 9:03/21/2016 9:34am Glomerular Filtration Rate Calc 70 03/21/2016 9:03/21/2016 9: 34am Glucose Level 85 MG/DL 65-110 03/21/2016 9:10a03/21/2016 9:34am Calculated Osmolality 259 MOSM/KG L 261-280 03/21/2016 9:10a2015 9:34am Calcium Level 9.2 MG/DL 8.4-10.2 03/21/2016 9:10a03/21/2016 9:34am Total Bilirubin 0.70 MG/DL 0.20-1.30 03/21/2016 9:10am 03/21/2016 9: 34am Alkaline Phosphatase 51 U/L 38-126 03/21/2016 9:10am 03/21/2016 9:34am Total Protein 5.7 G/DL L 6.3-8.2 03/21/2016 9:10am 03/21/2016 9:34am Albumin 3.5 G/DL 3.5-5.0 03/21/2016 9:10am 03/21/2016 9:34am Globulin 2.2 G/DL L 2.4-3.6 03/21/2016 9:10am 03/21/2016 9:34am Albumin/Globulin Ratio 1.6 RATIO 1.1-2.2 03/21/2016 9:10am 03/21/2016 9 :34am Aspartate Amino Transf (AST/SGOT) 23 U/L 14-36 03/21/2016 9:10am 2015 9:34am Alanine Aminotransferase (ALT/SGPT) 21 U/L 9-52 03/21/2016 9:10am 03/21 9:34am Procedures Procedure Status Date Provider(s) COMP SCREEN MAMMOGRAM ADD-ON Completed 03/21/16 BREAST TOMOSYNTHESIS BI Completed 03/21/16 [id number]"SCREENING MAMMOGRAPHY, PRODUCING DIRECT DIGITAL IMAGE Completed Encounters Encounter Location Arrival/Admit Date Discharge/Depart Date Attending Provider Registered Clinic [facility] 03/21/16 2:47pm LINH MAYBERRY Registered [facility] 03/21/16 9:16am TATE WIGGINS MD Discharged Recurring [facility] 02/22/16 9:17am 04/07/16 11:59pm TATE WIGGINS MD
--- OUTSIDE RECORDS SUMMARY | 2016-08-26 15:49 | XMS REPORT | Referral Summary ---
Author Author [facility] Organization [facility] Address Unknown Phone Unavailable Care Team Providers Care Polishing Wheel Repairer Name Role Phone Margarita Jaramillo Primary Care Physician [phone] Encounter VC Date(s): 03/10/15 - 03/10/15 [facility] [address] [place] [address] Discharge Disposition: [...] Smoking Status Never smoker Assessment and Plan No data available for this section
--- NOTE | 2016-08-26 15:58 | NUR ---
REPORT TO RICARDO MANN
--- NOTE | 2016-08-26 15:58 | NUR ---
TO RM 5 PER WC MOVED FROM TRIAGE
[2016-08-26] MEDS ORDERED: IBRU140C PO (16:14)
--- NOTE | 2016-08-26 16:24 | ERPDOC ---
Departure Disposition Decision Date: Aug 26, 2016 Disposition Decision Time: 17:24 Disposition: 02 ACUTE CARE HOSP, OTHER Impression Impression Impression: Primary Impression: Ureteral stone Additional Impression: Leukocytosis Leukocytosis type: lymphocytosis Qualified Codes: D72.820 - Lymphocytosis ( symptomatic) Severity: Moderate Condition: Stable Seen By: Mid-level only Referrals: BRINA SCHOFIELD MD (Family) Problems/Meds/Labs Reviewed?: Yes Medications reviewed and manag: Yes Follow up care ordered?: Yes Mental Status: Alert HPI - Female General Stated Complaint: SIDE PAIN/POSSIBLE KIDNEY STONES Time Seen by Provider: 16:13 Source: patient Exam Limitations: no limitations HPI - Female Initial Comments She presents to ER today for evaluation of left lower abdominal and back pain. She states that this started 2 or 3 days ago but she cannot recall. Did go and see her PCP this morning and had labs drawn as well as a CT. Ct does show a 4mm calculus in the left ureter at the level of the iliac vessels with mild hydronephrosis present. WBC was 14.5 without a left shift. Temp was 100 degrees at admission to ER. UA showed nitrite positive, WBC is >50, bacteria numerous. [place] was [place] [facility] [place] there [place] no urology coverage and so deferral to ER was advised. She denies any nausea/vomiting or diarrhea. Pain is controlled for now but worse with movement. Denies any fever at home. Occurred At: home Onset: Gradual Severity/Quality: sharpness Location: LLQ Radiation: none Associated Symptoms: abdominal pain, fever/chills (chills), lower back pain, DENIES: diaphoresis, dysuria, loss of bladder control, lumps, mass, nausea/ vomiting, nocturia, polyuria, swelling, syncope, urinary frequency Hx of Similar Symptoms: No Allergies: Coded Allergies: cortisone (Verified Allergy, Unknown, 08/26/16) lidocaine (Verified Allergy, Unknown, 08/26/16) meloxicam (Verified Allergy, Unknown, 08/26/16) Past History Patient Surgical History Repair of ruptured diaphragm and appendectomy secondary to horse accident - 1987. Cervical polypectomy - 1998. Left knee arthroscopy - 1987, 2001. Removal of mercedes neuroma from foot - 2000. Right axillary node excision - 2010. Past Medical History Metabolic: cancer, hypercholesterolemia Musculoskeletal: other Surgical History General: appendix, other Reproductive/: other Joint: foot, knee Family History Family PMH: FOUND: other Vaccines Hx Influenza Vaccination: Yes (FALL 2014) Hx Pneumococcal Vaccination: Yes (2013) Hx Tetanus, Diptheria, Pertuss: Yes Social History Does patient use chewing tobac: No Sexuality: male partner, other Review of Systems Constitutional Constitutional: chills, fatigue, DENIES: dizziness, fever, weakness Cardiovascular Cardiac: DENIES: chest pain, orthopnea Rhythm/Rate: DENIES: irregular beat, palpitations Pulmonary Respiratory: DENIES: cough, dyspnea, sputum, tachypnea GI Upper Abdomen: DENIES: nausea, pain, vomiting Lower Abdomen: pain, DENIES: constipation, diarrhea General: DENIES: dysuria, frequency, urgency Neurological General: DENIES: headache, numbness, tingling, weakness Physical Exam General General Nourishment: well nourished, well developed, appears stated age, no acute distress, adult General Body Habitus: well groomed Vitals and Pain First Documented Vital Signs Date Time Temp Pulse Resp B/P Pulse Ox O2 Delivery O2 Flow Rate FiO2 08/26/16 15:40 100.0 82 16 137/65 94 Room Air Weight: Kilograms: Height (feet): 5 Height (inches): 0.00 Triage Pain Scale: RN VS reviewed by Provider: Yes Normal Exams: Neck: Full range of motion, without adenopathy, JVD, bruits or thyromegaly Chest/Resp: Clear all [place], with good airflow, and symmetry bilaterally CV: Regular rate and rhythm, without murmur or gallop, Pulses 2+ all extremities, capillary refill, <2 seconds all ext., no pedal edema noted Abdomen: Bowel sounds positive, non-distended, no hepatosplenomegaly, masses or bruits noted Lymphatic: No lymphadenopathy, or lymphedema noted Integumentary: No rashes, hives, or bruising noted Neurologic: Patient is alert, and oriented Psychiatric: Patient exhibits, appropriate attention, emotion and affect Abdomen Inspection: NOT FOUND: distention Palpation: FOUND: soft, tender (Mild TTP on the LLQ without guarding, no CVA tenderness noted), NOT FOUND: involuntary guarding, voluntary guarding Differential Diagnoses Considering: Pyelonephritis, Renal Colic, UTI, Other (diverticulitis) Progress Results/Orders Orders Procedure Category Date Status Time Cbc W/Auto LAB 08/26/16 Complete Diff-Reflex Manual Cmp - Comprehensive LAB 08/26/16 Complete Metabolic Iv Lock (Ed Only) EDM 08/26/16 Transmitted 16:18 Ua, Dip Wreflex LAB 08/26/16 [employer] Specialist 16:18 Ceftriaxone I.V. (Er PHA 08/26/16 Complete Use Only) (Rocephin 17:00 Lab Results Laboratory Tests Test 08/26/16 16:33 White Blood Count 12.6T/MM3 Red Blood Count 3.97M/MM3 Hemoglobin 12.5GM/DL Hematocrit 37.0% Mean Corpuscular Volume 93.2UM3 Mean Corpuscular Hemoglobin 31.5UUG Mean Corpuscular Hemoglobin Concent 33.8GM/DL RDW Standard Deviation 45.4FL Platelet Count 89T/MM3 Mean Platelet Volume 11.7UM3 Immature Granulocyte % (Auto) 1.0% Neutrophils (%) (Auto) 23.6% Lymphocytes (%) (Auto) 70.9% Monocytes (%) (Auto) 4.4% Eosinophils (%) (Auto) 0.0% Basophils (%) (Auto) 0.1% Absolute Immature Granulocyte (auto 0.12T/MM3 Absolute Neutrophils (auto) 3.0T/MM3 Absolute Lymphocytes (auto) 9.0T/MM3 Absolute Monocytes (auto) 0.6T/MM3 Absolute Eosinophils (auto) 0.0T/MM3 Absolute Basophils (auto) 0.0T/MM3 Turbidity < 20 Sodium Level 130MEQ/L Potassium Level 4.2MEQ/L Chloride Level 95MEQ/L Carbon Dioxide Level 24MEQ/L Anion Gap 11MEQ/L Blood Urea Nitrogen 13.0MG/DL Creatinine 0.9MG/DL Glomerular Filtration Rate Calc 61 BUN/Creatinine Ratio 14RATIO Glucose Level 95MG/DL Calculated Osmolality 251MOSM/KG Calcium Level 9.0MG/DL Total Bilirubin 1.10MG/DL Icterus Index < 2 Aspartate Amino Transf (AST/SGOT) 34U/L Alanine Aminotransferase (ALT/SGPT) 42U/L Alkaline Phosphatase 62U/L Total Protein 6.0G/DL Albumin 3.6G/DL Globulin 2.4G/DL Albumin/Globulin Ratio 1.5RATIO Chemistry Specimen Hemolysis 21 Medications Current ED Medications Ceftriaxone Sodium/Sodium Chloride (Rocephin/NS) 100 ml @ 100 mls/hr O ONCE IV Last administered on 08/26/16t 17:11; Start 08/26/16 at 17:00; Stop at 17:59; Status DC Progress Progress WBC is 12.6 with 23.6 neutrophils, no bands. BMP is unremarkable aside from Na of 130. Rocephin 1gm given IVP. Did call and speak with Dr Alonzo, urologist, in [place]. He will accept patient for admission at [facility] and see her there. Anticipate surgery tomorrow. Patient notified and is agreeable with the transfer. BINDU VALENZUELA APRN Aug 26, 2016 16:24
--- OUTSIDE RECORDS SUMMARY | 2016-08-26 16:29 | XMS REPORT | Continuity of Care Document ---
Author Author [facility] Organization [facility] Address Unknown Phone Unavailable Allergies Medications Problems Procedures Results Encounters ACCT No. Visit Date/Time Discharge Status Pt. Type Provider Facility Loc./Unit Complaint [id number] 07/12/2013 15:41:00 07/12/2013 23 :59:59 CLS Outpatient [id number] 06/28/2013 15:27:00 06/28/2013 23 :59:59 CLS Outpatient [id number] 06/03/2013 11:16:00 06/03/2013 23 :59:59 CLS Outpatient
[2016-08-26 16:38] LABS: BASOPHILS % (AUTO) 0.1 % (0-2); HGB - HEMOGLOBIN 12.5 GM/DL (12-16); IMMATURE GRANULOCYTE # (AUTO) 0.12 T/MM3 (0.00-0.03); LYMPHOCYTES % (AUTO) 70.9 % (23-45); MEAN CORPUSCULAR HGB 31.5 UUG (26-34); MEAN CORPUSCULAR HGB CONC(MCHC 33.8 GM/DL (31-37); MEAN CORPUSCULAR VOLUME 93.2 UM3 (80-100); MEAN PLATELET VOLUME 11.7 UM3 (9.4-12.4); MONOCYTES # (AUTO) 0.6 T/MM3 (0-0.8); MONOCYTES % (AUTO) 4.4 % (0-9.0); NEUTROPHILS % (AUTO) 23.6 % (33-66); RED BLOOD COUNT 3.97 M/MM3 (4.00-5.20); WBC - WHITE BLOOD COUNT 12.6 T/MM3 (4.5-11.0)
[2016-08-26 16:49] LABS: ALBUMIN 3.6 G/DL (3.5-5.0); ALBUMIN/GLOBULIN RATIO 1.5 RATIO (1.1-2.2); ALKALINE PHOSPHATASE 62 U/L (38-126); ALT (SGPT) 42 U/L (9-52); ANION GAP 11 MEQ/L (5-15); AST (SGOT) 34 U/L (14-36); BUN/CREATININE RATIO 14 RATIO (6-26); CHLORIDE 95 MEQ/L (98-107); CO2 - CARBON DIOXIDE 24 MEQ/L (22-30); CREATININE 0.9 MG/DL (0.7-1.2); GLOMERULAR FILTRATION RATE 61; GLUCOSE 95 MG/DL (65-110); POTASSIUM 4.2 MEQ/L (3.6-5); SODIUM 130 MEQ/L (134-144)
[2016-08-26] MEDS ORDERED: CEFTRIAXONE I.V. (ER USE ONLY) 1 G in NORMAL SALINE 100 ML IV ONE (17:00)
--- NOTE | 2016-08-26 17:55 | NUR ---
OUTPUT VOIDED 420 CC CLOUDY [email or web address].UA TO LAB
--- NOTE | 2016-08-26 18:30 | NUR ---
STATUS PT PROVIDED WITH WARM BLANKET
[2016-08-26 18:34] LABS: COLOR,URINE YELLOW (YELLOW); LEUKOCYTE ESTERASE ,URINE 2+ (NEGATIVE); NITRITE,URINE POSITIVE (NEGATIVE)
[2016-08-26 18:35] LABS: BACTERIA,URINE 4+ (NEGATIVE); BLOOD, URINE 2+ (NEGATIVE); UROBILINOGEN,URINE NORMAL (NORMAL); WBC CLUMPS,URINE FEW; WBC,URINE TNTC /HPF (0-5)
--- NOTE | 2016-08-26 19:15 | NUR ---
STATUS PT RESTING QUIETLY ON CART DENIES NEEDS
--- NOTE | 2016-08-26 20:01 | NUR ---
REPORT BLAKE MANN AT [facility]
--- NOTE | 2016-08-26 20:03 | NUR ---
EMS NOTIFIED OF NEED FOR TRANSFER
--- NOTE | 2016-08-26 20:10 | NUR ---
STATUS PT UP TO BATHROOM WITH STANDBY ASSIST
[2016-08-26 20:20] VITALS: BP 144/67; PULSE 79; RESP 18; TEMP 100; O2SAT 99
== END 2016-08-26 20:20 | disposition short-term general hospital (02) ==
LOC: ED 15:32
DX: N13.2 Hydronephrosis with renal and ureteral calculous obstruction (principal); D72.820 Lymphocytosis (symptomatic)
CPT/HCPCS: 80053; 81001; 85025; 87086; 96365; 99285; J0696; J7050

== ENCOUNTER → 2016-09-03 | Outpatient (CLI) | payer MEDICARE, BC ==
[~2016-09-03] MED LIST changes: -HYDR-4246 PO; +IBRU140C PO; -POLY17PO6 PO
[2016-09-03 12:47] LABS: HGB - HEMOGLOBIN 12.2 GM/DL (12-16); MEAN CORPUSCULAR HGB 30.8 UUG (26-34); MEAN CORPUSCULAR VOLUME 93.4 UM3 (80-100); MEAN PLATELET VOLUME 10.5 UM3 (9.4-12.4); RED BLOOD COUNT 3.96 M/MM3 (4.00-5.20); WBC - WHITE BLOOD COUNT 3.9 T/MM3 (4.5-11.0)
[2016-09-03 13:07] LABS: ALBUMIN 3.4 G/DL (3.5-5.0); ALBUMIN/GLOBULIN RATIO 1.5 RATIO (1.1-2.2); ALKALINE PHOSPHATASE 64 U/L (38-126); ALT (SGPT) 25 U/L (9-52); ANION GAP 11 MEQ/L (5-15); AST (SGOT) 18 U/L (14-36); BUN/CREATININE RATIO 16 RATIO (6-26); CALCIUM 8.8 MG/DL (8.4-10.2); CHLORIDE 106 MEQ/L (98-107); CO2 - CARBON DIOXIDE 25 MEQ/L (22-30); CREATININE 0.7 MG/DL (0.7-1.2); GLOMERULAR FILTRATION RATE 81; GLUCOSE 95 MG/DL (65-110); POTASSIUM 3.9 MEQ/L (3.6-5); SODIUM 142 MEQ/L (134-144); TOTAL PROTEIN 5.7 G/DL (6.3-8.2)
[2016-09-03 13:32] LABS: LYMPHOCYTES # (MANUAL) 2.7 T/MM3 (1-4.8); MONOCYTES # (MANUAL) 0.3 T/MM3 (0-0.8); NEUTROPHILS #(MANUAL)-ABSOLUTE 0.9 T/MM3 (1.8-7.7); SMUDGE CELLS 2+; TOTAL CELLS COUNTED 100 %
== END ==
LOC: LABN 12:42
PROVIDERS: ATTEND Internal Medicine Medical Oncology
DX: C91.12 Chronic lymphocytic leukemia of B-cell type in relapse (principal)
CPT/HCPCS: 80053; 85007; 85027

== ENCOUNTER → 2016-09-03 | Outpatient (CLI) | payer MEDICARE, BC ==
--- NOTE | 2016-09-03 14:04 | DI ---
Indication: ITS.REASON: N20.0 CALCULUS OF KIDNEY PROCEDURE: CT RENAL W/O CONTRAST: Encounter: Initial Comparison: CT abdomen and pelvis dated July 16, [address] chest dated August 17, 2014 Technique: Axial CT images were performed through the abdomen and pelvis without intravenous contrast. Coronal and sagittal two-dimensional reformats. Automated Exposure Control and Iterative Reconstruction dose reducing techniques were utilized. Findings: Stable benign 6 mm nodule in the right lower lobe. The unenhanced contours of the liver, gallbladder, spleen, pancreas and adrenal glands are within normal limits. The right kidney appears normal. No right-sided renal or ureteral stone. Right ureter is difficult to follow in its entirety. Bladder is moderately distended. Left-sided double-J stent is in place. This has migrated distally, with the proximal locking loop 3 cm distal to the renal pelvis. The distal locking loop is within the bladder. There is mild left hydronephrosis. No definite stone burden seen along the course of the stent. No free fluid. Scattered colonic diverticulosis without evidence of acute diverticulitis. No evidence of a bowel obstruction. Bone windows no lytic or blastic osseous lesions. Impression: 1. Distal migration of the left-sided double-J stent with the proximal locking loop 3 cm distal to the renal pelvis. 2. No stone burden seen along the course of the stent or within the kidneys. .
== END ==
LOC: IMA 13:08
PROVIDERS: ATTEND Surgery
DX: N20.0 Calculus of kidney (principal); N13.30 Unspecified hydronephrosis; Z96.0 Presence of urogenital implants

== ENCOUNTER → 2016-09-10 | Outpatient (CLI) | payer MEDICARE, BC ==
[2016-09-10 10:57] LABS: HCT - HEMATOCRIT 37.9 % (36-46); HGB - HEMOGLOBIN 12.6 GM/DL (12-16); MEAN CORPUSCULAR HGB 30.7 UUG (26-34); MEAN CORPUSCULAR HGB CONC(MCHC 33.2 GM/DL (31-37); MEAN CORPUSCULAR VOLUME 92.4 UM3 (80-100); MEAN PLATELET VOLUME 9.9 UM3 (9.4-12.4); WBC - WHITE BLOOD COUNT 3.5 T/MM3 (4.5-11.0)
[2016-09-10 11:02] LABS: LYMPHOCYTES # (MANUAL) 2.1 T/MM3 (1-4.8); MONOCYTES # (MANUAL) 0.2 T/MM3 (0-0.8); NEUTROPHILS #(MANUAL)-ABSOLUTE 1.2 T/MM3 (1.8-7.7); NUCLEATED RED BLOOD CELLS 1; TOTAL CELLS COUNTED 100 %
[2016-09-10 11:03] LABS: ALBUMIN 3.3 G/DL (3.5-5.0); ALBUMIN/GLOBULIN RATIO 1.4 RATIO (1.1-2.2); ALKALINE PHOSPHATASE 64 U/L (38-126); ALT (SGPT) 24 U/L (9-52); ANION GAP 11 MEQ/L (5-15); AST (SGOT) 20 U/L (14-36); BUN/CREATININE RATIO 14 RATIO (6-26); CALCIUM 8.8 MG/DL (8.4-10.2); CHLORIDE 108 MEQ/L (98-107); CO2 - CARBON DIOXIDE 23 MEQ/L (22-30); CREATININE 0.8 MG/DL (0.7-1.2); GLOMERULAR FILTRATION RATE 69; GLUCOSE 90 MG/DL (65-110); SODIUM 142 MEQ/L (134-144); TOTAL PROTEIN 5.7 G/DL (6.3-8.2)
== END ==
LOC: LABN 10:44
PROVIDERS: ATTEND Internal Medicine Medical Oncology
DX: C91.12 Chronic lymphocytic leukemia of B-cell type in relapse (principal)
CPT/HCPCS: 80053; 85007; 85027

== ENCOUNTER → 2016-09-24 | Outpatient (CLI) | payer MEDICARE, BC ==
--- NOTE | 2016-09-24 11:57 | DI ---
LOCATION OF DICTATION: [facility] EXAM: CHEST, PA LATERAL HISTORY: ITS.REASON: R05 COUGH COMPARISON: July 16, 2015. FINDINGS: The heart size is normal. The mediastinal configuration is unremarkable. There is stable mild blunting left costophrenic angle which may reflect pleural thickening or small effusion. There is no evidence for a pneumothorax. The osseous structures are within normal limits. IMPRESSION: Stable chest x-ray without acute cardiopulmonary abnormalities. .
== END ==
LOC: IMA 11:31
PROVIDERS: ATTEND Internal Medicine Medical Oncology
DX: R05 Cough (principal)
CPT/HCPCS: 87486; 87581; 87633; 87798